=== PATIENT | female | born 1995 | race Hispanic/Latino ===

== ENCOUNTER 2019-07-03 07:50 | Emergency (ER) | payer MEDICAID ==
[2019-07-03 08:55] LABS: Bacteria,Urine 1+ /HPF (Negative); Bilirubin,Urine NEG (Negative); Blood,Urine NEG (Negative); Color,Urine Yellow (Yellow); Mucus,Urine FEW /HPF; Protein,Urine <15 mg/dL mg/dL (Negative); Urobilinogen,Urine < 2.0 mg/dL (<2.0)
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
--- NOTE | 2019-07-03 10:57 | Ultrasound Report ---
Obstetrical ultrasound. 07/03/2019. HISTORY: Left lower quadrant pain. History of ectopic . FINDINGS: Imaging was performed by transabdominally and endovaginally. The uterus measures 9 x 4.7 x 5.1 cm. The endometrial stripe is thickened measuring 14 mm. Negative for intrauterine . Right ovary measures 3.8 x 2 x 2 cm and contains small physiologic cysts. The left ovary measures 3.2 x 1.7 x 2.9 cm and contains small physiologic cysts. Both ovaries demonstrate flow. Negative for adn exal mass or fluid. IMPRESSION: 1. Thickened endometrial stripe. Negative for intrauterine . 2. Negative for adnexal abnormality. Signer Name: Wilmer Cherry MD Signed: 07/03/2019 10:53 AM Workstation Name: [id number]
[2019-07-03 11:35] VITALS: BP 139/61
== END 2019-07-03 11:35 | disposition home or self-care (01) ==
LOC: ED 07:50
DX: O26.891 Other specified pregnancy related conditions, first trimester (principal); R10.32 Left lower quadrant pain; Z3A.00 Weeks of gestation of pregnancy not specified
CPT/HCPCS: 36415; 76801; 76817; 81001; 84702

== ENCOUNTER 2019-07-09 10:38 | Outpatient (CLI) | payer MEDICAID ==
[2019-07-09 10:53] LABS: Basophils % (Auto) 0.2 % (0.0-1.8); Eosinophils # (Auto) 0.2 K/mm3 (0.0-0.4); Eosinophils % (Auto) 1.6 % (0.0-4.3); Hematocrit 40.3 % (30.3-42.9); Hemoglobin 13.2 gm/dl (10.1-14.3); Lymphocytes # (Auto) 2.8 K/mm3 (1.2-5.4); Lymphocytes % (Auto) 29.4 % (13.4-35.0); Mean Corpuscular HGB Conc 33 % (30-34); Mean Corpuscular Volume 95 fl (79-97); Monocytes # (Auto) 0.5 K/mm3 (0.0-0.8); Monocytes % (Auto) 4.8 % (0.0-7.3); Platelet Count 259 K/mm3 (140-440); Red Blood Count 4.26 M/mm3 (3.65-5.03); Red Cell Distribution Width 13.3 % (13.2-15.2)
[2019-07-09 11:09] LABS: Alanine Aminotransferase 21 units/L (7-56); Albumin 4.2 g/dL (3.9-5); BUN/Creatinine Ratio 13; Blood Urea Nitrogen 8 mg/dL (7-17); Calcium 8.4 mg/dL (8.4-10.2); Hemolysis Index 15
== END 2019-07-09 10:39 | disposition home or self-care (01) ==
LOC: LAB 10:38
PROVIDERS: ATTEND Obstetrics & Gynecology
DX: O00.90 Unspecified ectopic pregnancy without intrauterine pregnancy (principal)
CPT/HCPCS: 36415; 80053; 84702; 85025

== ENCOUNTER 2019-07-09 10:58 | Emergency (ER) | payer MEDICAID ==
--- NOTE | 2019-07-09 11:12 | Emergency Department Report ---
Blank Doc - Documentation Documentation: 24-year-old female that presents with methotrexate admin with labs. Labs has been drawn this morning. Was sent by Dr. Duarte. This initial assessment/diagnostic orders/clinical plan/treatment(s) is/are subject to change based on patient's health status, clinical progression and re- assessment by fellow clinical providers in the ED. Further treatment and workup at subsequent clinical providers discretion. Patient/guardians urged not to elope from the ED as their condition may be serious if not clinically assessed and managed. Initial orders include: 1- Patient sent to [facility] for further evaluation and treatment
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
[2019-07-09] MEDS ORDERED: KETOROLAC 60 MG/2 ML INJ IM ONE (14:57)
[2019-07-09] MEDS ORDERED: KETOROLAC 60 MG/2 ML INJ ONE (14:58)
[2019-07-09 15:21] VITALS: BP 140/84
== END 2019-07-09 14:48 | disposition home or self-care (01) ==
LOC: ED 10:58
DX: O00.90 Unspecified ectopic pregnancy without intrauterine pregnancy (principal); Z90.89 Acquired absence of other organs; Z88.1 Allergy status to other antibiotic agents
CPT/HCPCS: 96372; 99282; J1885; J9260

== ENCOUNTER 2019-07-12 00:46 | Inpatient (IN) | payer MEDICAID ==
[2019-07-12] MEDS ORDERED: ONDANSETRON 4 MG/2 ML INJ IV ONE (01:52)
[2019-07-12] MEDS ORDERED: MORPHINE 4 MG/1 ML INJ IV ONE ×2 (01:52→03:22)
[2019-07-12] MEDS ORDERED: SODIUM CHLORIDE 0.9% 1000 ML 1,000 ML IV ONE (01:52)
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
[2019-07-12 02:36] LABS: INR 0.95 (0.87-1.13)
[2019-07-12 02:49] LABS: Alanine Aminotransferase 44 units/L (7-56); Albumin 3.9 g/dL (3.9-5); BUN/Creatinine Ratio 13; Blood Urea Nitrogen 9 mg/dL (7-17); Calcium 8.6 mg/dL (8.4-10.2); Hemolysis Index 16
--- NOTE | 2019-07-12 03:14 | Ultrasound Report ---
ULTRASOUND OBSTETRIC INDICATION / CLINICAL INFORMATION: llq pain ectopic . Patient was treated with methotrexate 3 days ago for presumed ectopic . TECHNIQUE: Transabdominal. Transvaginal color Doppler ultrasound performed COMPARISON: Prior pelvic ultrasound 07/03/2019 FINDINGS: Within the uterus, the endometrium is markedly thickened measuring 2.2 cm. This represents increased thickening since the prior ultrasound. There is small amount of fluid within the endometrial cavity a s well as, but no defined gestational sac. The right ovary is well-visualized and appears unremarkable. Adjacent to the left ovary, there is a complex round mass measuring approximate 2.5 x 2.0 x 1.9 cm. T here is some mild surrounding increased vascularity. Within the mass, the central portion is cystic. No defined gestational sac or pole is identified. Both ovaries demonstrate ovarian flow. FREE FLUID: Mild to moderate in amount ADDITIONAL FINDINGS: None. IMPRESSION: 1. 2.5 cm round left adnexal mass with slightly increased surrounding vascularity. This is a new find ing compared to the prior pelvic ultrasound of 07/03/2019. The appearance is certainly worrisome for l eft adnexal ectopic . 2. Abnormal endometrial thickening. This has increased in amount since prior ultrasound of 07/03/2019 CRITICAL RESULT: Time of Discovery: 0159 hours CAR BARN LABORER Time of Communication: 0205 hours CAR BARN LABORER Licensed Practitioner Receiving Report: Dr. Joshua Read Back Performed: Yes. Signer Name: Wanda De Jesus MD Signed: 07/12/2019 3:10 AM Workstation Name: [id number]
--- NOTE | 2019-07-12 03:14 | Ultrasound Report ---
ULTRASOUND OBSTETRIC INDICATION / CLINICAL INFORMATION: llq pain ectopic . Patient was treated with methotrexate 3 days ago for presumed ectopic . TECHNIQUE: Transabdominal. Transvaginal color Doppler ultrasound performed COMPARISON: Prior pelvic ultrasound 07/03/2019 FINDINGS: Within the uterus, the endometrium is markedly thickened measuring 2.2 cm. This represents increased thickening since the prior ultrasound. There is small amount of fluid within the endometrial cavity a s well as, but no defined gestational sac. The right ovary is well-visualized and appears unremarkable. Adjacent to the left ovary, there is a complex round mass measuring approximate 2.5 x 2.0 x 1.9 cm. T here is some mild surrounding increased vascularity. Within the mass, the central portion is cystic. No defined gestational sac or pole is identified. Both ovaries demonstrate ovarian flow. FREE FLUID: Mild to moderate in amount ADDITIONAL FINDINGS: None. IMPRESSION: 1. 2.5 cm round left adnexal mass with slightly increased surrounding vascularity. This is a new find ing compared to the prior pelvic ultrasound of 07/03/2019. The appearance is certainly worrisome for l eft adnexal ectopic . 2. Abnormal endometrial thickening. This has increased in amount since prior ultrasound of 07/03/2019 CRITICAL RESULT: Time of Discovery: 0159 hours WILDLIFE PROTECTOR Time of Communication: 0205 hours WILDLIFE PROTECTOR Licensed Practitioner Receiving Report: Dr. Joshua Read Back Performed: Yes. Signer Name: Wanda De Jesus MD Signed: 07/12/2019 3:10 AM Workstation Name: [id number]
[2019-07-12 04:04] LABS: Hematocrit 39.4 % (30.3-42.9); Hemoglobin 13.4 gm/dl (10.1-14.3); Mean Corpuscular HGB Conc 34 % (30-34); Mean Corpuscular Volume 92 fl (79-97); Platelet Count 229 K/mm3 (140-440); Red Blood Count 4.31 M/mm3 (3.65-5.03); Red Cell Distribution Width 12.8 % (13.2-15.2)
[2019-07-12] MEDS ORDERED: MORPHINE 2 MG/1 ML INJ IV PRN ×2 (07:03→10:11)
[2019-07-12] MEDS: D5W/LACTATED RINGERS 1,000 ML IV SCH ×2 (07:11→15:55)
[2019-07-12] MEDS ORDERED: ONDANSETRON 4 MG/2 ML INJ IV PRN (09:12)
--- NOTE | 2019-07-12 10:11 | Short Stay Summary ---
Short Stay Documentation Date of service: 07/12/19 Narrative H&P: 24y/o @ 6 weeks ega with findings of an ectopic . The patient was treated for an ectopic in 2018 with a salpingectomy. She presents with an ectopic in the contralateral tube. The patient received IM methotrexate Jul 09. She presents to the ED with pelvic pain however denies vaginal bleeding. Pelvic ultrasound demonstrates a 2.5cm left adnexal mass consistent with an ectopic . It appears to be unruptured. The patient has had a decline in her HCG and her H/H along with vitals remain stable. - History Principal diagnosis: Ectopic Past Medical History: No medical history Past Surgical History: Other (laparoscopy/salpingectomy) Social history: - Allergies and Medications Current Medications: Allergies vancomycin Allergy (Verified 02/21/18 12:05) Hives Home Medications Medication Instructions Recorded Confirmed Last Taken Type Ibuprofen [Motrin] 800 mg PO Q8HR PRN #60 tablet 02/21/18 Unknown Rx oxyCODONE /ACETAMINOPHEN [Percocet 1 tab PO Q6HR PRN #30 tablet 02/21/18 Unknown Rx 5/325] Active Medications Dextrose/Lactated Ringer's (D5lr) 1,000 mls @ 125 mls/hr IV DIRECT HEMANTH Last Admin: 07/12/19 07:11 Dose: 125 mls/hr Documented by: Morphine Sulfate (Morphine) 2 mg IV Q1H PRN PRN Reason: Pain, Moderate (4-6) Last Admin: 07/12/19 09:03 Dose: 2 mg Documented by: Ondansetron HCl (Zofran) 4 mg IV Q4H PRN PRN Reason: Nausea And Vomiting Last Admin: 07/12/19 09:18 Dose: 4 mg Documented by: - Physical exam General appearance: mild distress Integumentary: no rash HEENT: Atraumatic Lungs: Clear to auscultation Breasts: deferred Heart: Regular rate Gastrointestinal: tenderness, obese Female Genitourinary: deferred - Hospital course Hospital course: Patient admitted for pain control and observation for ectopic s/p MTX treatment. The patient was experiencing pelvic pain with bleeding or rupture of ectopic. Patient remained stable. Reliable patient and will arrange followup in office. - Disposition Condition at discharge: Good Disposition: DC-01 TO HOME OR SELFCARE Short Stay Discharge Plan Activity: other (pelvic rest) Diet: regular Additional Instructions: patient will need to followup with Dr Andre on 07/16/2019 Prescriptions: Oxycodone HCl/Acetaminophen [Percocet 10/325 mg] 1 each PO Q8H PRN #30 tablet PRN Reason: Pain Ondansetron (Nf) [Zofran TAB] 8 mg PO Q8HR PRN #20 tablet PRN Reason: Nausea
[2019-07-12] MEDS: MORPHINE 4 MG/1 ML INJ IV PRN ×3 (12:12→20:33)
[2019-07-13] MEDS: D5W/LACTATED RINGERS 1,000 ML IV SCH (04:26)
[2019-07-13] MEDS: MORPHINE 4 MG/1 ML INJ IV PRN ×2 (04:28→08:18)
[2019-07-13 08:26] LABS: Hematocrit 33.7 % (30.3-42.9); Hemoglobin 11.4 gm/dl (10.1-14.3)
--- NOTE | 2019-07-13 08:37 | Progress Note ---
Assessment and Plan - Patient Problems (1) Ectopic Current Visit: Yes Status: Acute Plan to address problem: awaiting HCG levels will consider discharge today if remains stable Subjective - Subjective Date of service: 07/13/19 Principal diagnosis: Ectopic Interval history: Patient reports feeling better. Having intermittent vaginal bleeding. Slight decrease in H/H with hydration. Tolerating diet better. Patient reports: appetite normal, voiding normally, pain well controlled Objective - Vital Signs Latest vital signs: Vital Signs Temp Pulse Resp BP BP Pulse Ox 07/13/19 04:00 98.6 F 60 18 113/58 07/12/19 23:30 98.6 F 69 18 102/72 07/12/19 15:53 98.3 F 51 L 18 113/67 100 07/12/19 12:07 97.8 F 62 18 129/81 99 Intake and Output 07/12/19 07/13/19 07/13/19 22:59 06:59 14:59 Intake Total 1000 1000 Balance 1000 1000 Intake: IV 1000 1000 D5lr 1,000 ml @ 125 mls/ 1000 1000 hr IV DIRECT [facility] Rx#: [id number] Other: Voiding Method Toilet # Voids Void 1 1
[2019-07-13 12:50] VITALS: BP 106/61
== END 2019-07-13 12:30 | disposition home or self-care (01) | DRG 777 ==
LOC: ED 00:46 → OB 03:16
PROVIDERS: ADMIT Obstetrics & Gynecology; ATTEND Obstetrics & Gynecology
DX: O00.102 Left tubal pregnancy without intrauterine pregnancy (principal); F17.200 Nicotine dependence, unspecified, uncomplicated; O08.89 Other complications following an ectopic and molar pregnancy; Z88.1 Allergy status to other antibiotic agents; Z90.89 Acquired absence of other organs; Z90.79 Acquired absence of other genital organ(s)
CPT/HCPCS: 36415; 76801; 76817; 80053; 84702; 85014; 85018; 85025; 85027; 85610; 85730; 86850; 86900; 86901; 96372; 96374; 96375; G0378; J1885; J2270; J2405; J7030; J7121; J9260

== ENCOUNTER 2020-09-26 13:13 | Inpatient (IN) | payer MEDICAID ==
[2020-09-26] MEDS ORDERED: SODIUM CHLORIDE 0.9% 1000 ML 1,000 ML IV ONE (13:24)
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
[2020-09-26] MEDS ORDERED: LORazepam 2 MG/ML VIAL IV ONE ×2 (13:38→14:05)
[2020-09-26 15:43] LABS: Basophils # (Auto) 0.1 K/mm3 (0.0-0.1); Basophils % (Auto) 0.5 % (0.0-1.8); Eosinophils % (Auto) 0.3 % (0.0-4.3); Hematocrit 41.1 % (30.3-42.9); Hemoglobin 13.9 gm/dl (10.1-14.3); Lymphocytes # (Auto) 2.4 K/mm3 (1.2-5.4); Lymphocytes % (Auto) 16.7 % (13.4-35.0); Mean Corpuscular HGB Conc 34 % (30-34); Mean Corpuscular Volume 93 fl (79-97); Monocytes # (Auto) 0.8 K/mm3 (0.0-0.8); Monocytes % (Auto) 5.6 % (0.0-7.3); Platelet Count 369 K/mm3 (140-440); Red Cell Distribution Width 12.7 % (13.2-15.2)
[2020-09-26 15:50] LABS: Alanine Aminotransferase 13 units/L (7-56); Albumin 4.5 g/dL (3.9-5); BUN/Creatinine Ratio 16; Blood Urea Nitrogen 14 mg/dL (7-17); Calcium 9.1 mg/dL (8.4-10.2); Hemolysis Index 15
--- NOTE | 2020-09-26 16:27 | XRay Report ---
CHEST 1 VIEW 09/26/2020 3:18 PM INDICATION / CLINICAL INFORMATION: Shortness of breath. COMPARISON: None available. FINDINGS: SUPPORT DEVICES: None. HEART / MEDIASTINUM: No significant abnormality. LUNGS / PLEURA: No significant pulmonary or pleural abnormality. No pneumothorax. ADDITIONAL FINDINGS: No significant additional findings. IMPRESSION: 1. No acute findings. Signer Name: John Edwards MD Signed: 09/26/2020 4:23 PM Workstation Name: [id number]
[2020-09-26] MEDS ORDERED: ETOMIDATE 20 MG/10 ML INJ IV ONE (17:03)
[2020-09-26] MEDS ORDERED: ROCURONIUM 50 MG/5 ML INJ IV ONE (17:04)
[2020-09-26] MEDS ORDERED: LIP THERAPY VASELINE TP PRN (17:15)
[2020-09-26] MEDS ORDERED: fentaNYL 100 MCG/2 ML INJ IV PRN (17:15)
[2020-09-26] MEDS ORDERED: LORazepam 2 MG/ML VIAL IV PRN (17:15)
[2020-09-26] MEDS ORDERED: MINERAL OIL/PETROLATUM, WHITE OPHTH OINT 3.5 GM OU PRN (17:15)
--- NOTE | 2020-09-26 17:15 | History and Physical Report ---
History of Present Illness Chief complaint: Confused History of present illness: 25 YO Female with Nicotine Dependence, Methamphetamine Dependence presents to ED for evaluation. Patient is confused and lethargic and unable to provide history the time of my evaluation. Patient history taken from EMS staff, ED staff, as well as patient family. Patient family reports that patient ingested 7 g methamphetamines in an effort to hide it from the police. Patient transported to [facility] via private vehicle for further care and evaluation of the aforementioned symptoms. Patient seen and evaluated in the emergency department. All labs and imaging studies reviewed. At the time my evaluation the patient is lethargic and is unable to protect her airway and has a pulse oximetry of 86% on room air. The patient was subsequently intubated and placed on ventilatory support. No further history is obtainable. No prior admission for review. No medication listed at time of admission for reconciliation. This is a 25-year-old female who presents to the emergency department with complaint of feeling hot and having palpitations after swallowing 7 g of methamphetamines. The patient ingested the methamphetamines about 3 hours prior to presentation as she was trying to avoid being caught with the drugs by the aretha giraldo. The patient does admit that she has previously used methamphetamines. She is a tobacco smoker. She denies any current alcohol use. She denies any other past medical history. The patient was driven in by a friend or family member. She has not taken anything else for symptoms prior to presentation today. Poison control notified. Past History Past Medical History: other (See HPI) Past Surgical History: tonsillectomy, Other (Back surgery) Social history: , smoking Family history: no significant family history (Reviewed) Medications and Allergies Allergies Allergy/AdvReac Type Severity Reaction Status Date / Time vancomycin Allergy Hives Verified 02/21/18 12:05 Home Medications Medication Instructions Recorded Confirmed Last Taken Type Ibuprofen [Motrin] 800 mg PO Q8HR PRN #60 tablet 02/21/18 07/12/19 Unknown Rx oxyCODONE /ACETAMINOPHEN [Percocet 1 tab PO Q6HR PRN #30 tablet 02/21/18 07/12/19 Unknown Rx 5/325] Ondansetron (Nf) [Zofran TAB] 8 mg PO Q8HR PRN #20 tablet 07/13/19 Unknown Rx Oxycodone HCl/Acetaminophen 1 each PO Q8H PRN #30 tablet 07/13/19 Unknown Rx [Percocet 10/325 mg] Review of Systems ROS unobtainable: due to mental status Exam - Constitutional Vitals: Temp Pulse Resp BP Pulse Ox 97.0 F L 122 H 26 H 104/53 98 09/26/20 13:30 09/26/20 16:53 09/26/20 16:53 09/26/20 16:53 09/26/20 16:53 General appearance: Present: mild distress - EENT Eyes: Present: PERRL, mydriasis ENT: clear oral mucosa, hearing decreased, other (Oral mucosa dry) - Neck Neck: Present: supple, normal ROM - Respiratory Respiratory effort: normal Respiratory: bilateral: diminished, rhonchi - Cardiovascular Rhythm: other (Tachycardia) Heart Sounds: Present: S1 & S2. Absent: rub, click - Extremities Extremities: pulses symmetrical, No edema Peripheral Pulses: within normal limits - Abdominal General gastrointestinal: Present: soft, non-tender, non-distended, normal bowel sounds Female genitourinary: Present: normal - Integumentary Integumentary: Present: clear, warm, dry - Musculoskeletal Musculoskeletal: gait normal, strength equal bilaterally - Psychiatric Psychiatric: appropriate mood/affect, intact judgment & insight - Neurologic Neurologic: CNII-XII intact, moves all extremities Results - Labs CBC & Chem 7: 09/26/20 14:58 09/26/20 14:58 Labs: Abnormal lab results 09/26/20 09/26/20 09/26/20 Range/Units 14:58 14:58 14:58 WBC 14.4 H (4.5-11.0) K/mm3 RDW 12.7 L (13.2-15.2) % Seg Neutrophils % 76.9 H (40.0-70.0) % Seg Neutrophils # 11.1 H (1.8-7.7) K/mm3 Chloride 108.9 H (98-107) mmol/L Carbon Dioxide 19 L (22-30) mmol/L Salicylates < 0.3 L (2.8-20.0) mg/dL Acetaminophen (10.0-30.0) ug/mL 09/26/20 Range/Units 14:58 WBC (4.5-11.0) K/mm3 RDW (13.2-15.2) % Seg Neutrophils % (40.0-70.0) % Seg Neutrophils # (1.8-7.7) K/mm3 Chloride (98-107) mmol/L Carbon Dioxide (22-30) mmol/L Salicylates (2.8-20.0) mg/dL Acetaminophen 5.0 L (10.0-30.0) ug/mL Assessment and Plan - Patient Problems (1) Acute hypoxemic respiratory failure Current Visit: Yes Status: Acute Plan to address problem: Patient intubated and placed on ventilatory support, daily ABG, spontaneous breathing trial daily, sedation holiday, critical care team consulted, supportive care. The high probability of a clinically significant, sudden or life threatening deterioration of the [neuro, pulmonary] system(s) required my full and direct attention, intervention and personal management. The aggregate critical care time was [65] minutes. This time is in addition to time spent performing reported procedures but includes the following: [x] Data Review and interpretation [x] Patient assessment and monitoring of vital signs [x] Documentation [x] Medication orders and management (2) Systemic inflammatory response syndrome Current Visit: Yes Status: Acute Plan to address problem: CBC, repeat CBC in a.m., IV fluid resuscitation therapy. (3) Nicotine dependence Current Visit: Yes Status: Acute Qualifiers: Nicotine product type: cigarettes Substance use status: in withdrawal Qualified Code(s): F17.213 - Nicotine dependence, cigarettes, with withdrawal (4) Methamphetamine intoxication Current Visit: Yes Status: Acute Plan to address problem: Poison control notified, benzodiazepine therapy, supportive care. Neurochecks. (5) DVT prophylaxis Current Visit: Yes Status: Acute Plan to address problem: SCD to bilateral lower extremities while in bed, prophylactic anticoagulation
--- NOTE | 2020-09-26 17:40 | XRay Report ---
CHEST 1 VIEW 09/26/2020 5:11 PM INDICATION / CLINICAL INFORMATION: post intubation. COMPARISON: 09/26/2020 FINDINGS: SUPPORT DEVICES: Interval placement of ET tube with its tip stemmed in the right main bronchus. Retra ction approximately 4.3 cm is recommended. HEART / MEDIASTINUM: Stable. LUNGS / PLEURA: No significant pulmonary or pleural abnormality. No pneumothorax. ADDITIONAL FINDINGS: No significant additional findings. IMPRESSION: 1. Interval placement of ET tube stemmed within the right main bronchus. Retraction approximately 4.3 cm is recommended. Signer Name: Angelito Sanchez MD Signed: 09/26/2020 5:36 PM Workstation Name: [id number]
[2020-09-26] MEDS ORDERED: fentaNYL DRIP Premix 2,000 MCG/100 ML BAG IV SCH (18:00)
[2020-09-26] MEDS ORDERED: MIDAZOLAM 5 MG/5 ML INJ MDV IV NR (18:00)
[2020-09-26] MEDS ORDERED: LORazepam 100 MG in SODIUM CHLORIDE 0.9% 50 ML, EMPTY BAG 0 ML IV SCH (18:00)
[2020-09-26] MEDS: HEPARIN 5,000 UNIT/1 ML VIAL SUB-Q SCH (23:00)
--- NOTE | 2020-09-27 03:38 | XRay Report ---
CHEST 1 VIEW 09/27/2020 2:12 AM INDICATION / CLINICAL INFORMATION: follow up respiratory failure. COMPARISON: 09/26/2020 FINDINGS: SUPPORT DEVICES: Tip of endotracheal tube projects the level the ari. HEART / MEDIASTINUM: No significant abnormality. LUNGS / PLEURA: Right lung is clear. There is mild volume loss in the left. No pneumothorax. ADDITIONAL FINDINGS: No significant additional findings. IMPRESSION: 1. Tip of endotracheal tube is at the level the ari. There is mild volume loss on the left CRITICAL RESULT: Dr. Mallory called this report to patients nurseKay, at time 0233 central time. Report was conf irmed. Signer Name: Yuri Mallory MD Signed: 09/27/2020 3:34 AM Workstation Name: [id number]
--- NOTE | 2020-09-27 06:56 | XRay Report ---
CHEST 1 VIEW 09/27/2020 6:37 AM INDICATION / CLINICAL INFORMATION: ET Tube Placement. COMPARISON: 09/27/2020, O2 50 hours FINDINGS: SUPPORT DEVICES: Endotracheal tube tip is positioned approximately 1.5 cm above the ari HEART / MEDIASTINUM: Unchanged LUNGS / PLEURA: The lungs appear unchanged No pneumothorax. ADDITIONAL FINDINGS: No significant additional findings. IMPRESSION: 1. The endotracheal tube has been retracted slightly. The tip now projects approximately 1.5 cm above the ari. Lungs appear unchanged. Signer Name: Yuri Mallory MD Signed: 09/27/2020 6:52 AM Workstation Name: [id number]
[2020-09-27] MEDS: HEPARIN 5,000 UNIT/1 ML VIAL SUB-Q SCH ×2 (09:13→21:45)
[2020-09-27] MEDS: FAMOTIDINE 20 MG/2 ML INJ IV SCH ×2 (09:13→21:45)
[2020-09-27] MEDS ORDERED: LORazepam 2 MG/ML VIAL IV PRN (09:50)
--- NOTE | 2020-09-27 09:55 | Consultation ---
History of Present Illness Consult date: 09/27/20 Requesting physician: BRADEN LEAVITT Reason for consult: other (meth overdose) History of present illness: Patient is intubated and sedated. All history comes from chart. 25 y/o female who presented to the ED yesterday with complaints of palpatations and feeling warm. Swallowed 7grams of methamphetamines. Per chart, ED spoke with poison control who stated to be liberal with benzo therapy. Checked out to next ED physician who was called to bedside to evaluate patient. Per their assessment, not able to protect airway so intubated. No ABG was performed pre intubation. Once intubated, patient was then started on ativan drip, not exactly sure why as she was intubated for airway protection which would suggest her mental status was compromised. This am she is on minimal vent settings but still sedated. Past History Past Medical History: other (unable to obtain) Past Surgical History: tonsillectomy, Other (Back surgery) Social history: , smoking Family history: no significant family history (Reviewed) Medications and Allergies Allergies Allergy/AdvReac Type Severity Reaction Status Date / Time vancomycin Allergy Hives Verified 02/21/18 12:05 Home Medications Medication Instructions Recorded Confirmed Last Taken Type No Known Home Medications [No 09/26/20 09/26/20 Unknown History Reported Home Medications] Active Meds: Active Medications Famotidine (Famotidine 20 Mg/2 Ml Inj) 20 mg IV BID [facility] Last Admin: 09/27/20 09:13 Dose: 20 mg Documented by: Fentanyl (Fentanyl 100 Mcg/2 Ml Inj) 50 mcg IV Q10MIN PRN PRN Reason: ANALGESIA Heparin Sodium (Porcine) (Heparin 5,000 Unit/1 Ml Vial) 5,000 unit SUB-Q Q12HR [facility] Last Admin: 09/27/20 09:13 Dose: 5,000 unit Documented by: Hydrophilic Ointment (Lip Therapy Vaseline) 1 applic TP Q2HR PRN PRN Reason: Dry Lips Fentanyl Citrate (Fentanyl Drip Premix) 2,000 mcg in 100 mls @ 3.96 mls/hr IV T ITR [facility]; Protocol Sodium Chloride (Nacl 0.9% 1000 Ml) 1,000 mls @ 125 mls/hr IV DIRECT [facility] Lorazepam (Lorazepam 2 Mg/Ml Vial) 2 mg IV Q10MIN PRN PRN Reason: Agitation Lorazepam (Lorazepam 2 Mg/Ml Vial) 2 mg IV Q4H PRN PRN Reason: Agitation Multi-Ingred Cream/Lotion/Oil/Oint (Mineral Oil/Petrolatum, White Ophth Oint 3.5 Gm) 1 applic OU Q4HR PRN PRN Reason: Dry Eye(s) Sodium Chloride (Sodium Chloride 0.9% 10 Ml Flush Syringe) 10 ml IV BID [facility] Last Admin: 09/27/20 09:13 Dose: 10 ml Documented by: Sodium Chloride (Sodium Chloride 0.9% 10 Ml Flush Syringe) 10 ml IV PRN PRN PRN Reason: LINE FLUSH Review of Systems ROS unobtainable: due to endotracheal tube, due to mental status Physical Examination Vital signs: Vital Signs Temp Pulse Resp BP Pulse Ox 97.0 F L 163 H 40 H 149/103 86 09/26/20 13:30 09/26/20 13:30 09/26/20 13:30 09/26/20 13:30 09/26/20 13:30 General appearance: no acute distress Eyes: non-icteric ENT: other (orally intubated and sedated.) Neck: supple Effort: normal Ascultation: Bilateral: clear Results - Laboratory Findings CBC and BMP: 09/26/20 14:58 09/26/20 14:58 ABG ABG pH 7.427 (7.320-7.450) 09/27/20 08:58 POC ABG pCO2 32.9 mmHg (32.0-48.0) 09/27/20 08:58 POC ABG pO2 86.9 mmHg (83-108) 09/27/20 08:58 POC ABG HCO3 21.2 09/27/20 08:58 Abnormal lab findings: Abnormal Labs 09/26/20 09/26/20 09/26/20 14:58 14:58 14:58 WBC 14.4 H RDW 12.7 L Seg Neutrophils % 76.9 H Seg Neutrophils # 11.1 H ABG pH POC ABG pCO2 ABG Sodium ABG Chloride ABG Glucose Chloride 108.9 H Carbon Dioxide 19 L Arterial Blood Glucose Salicylates < 0.3 L Acetaminophen 09/26/20 09/26/20 09/27/20 14:58 18:00 08:58 WBC RDW Seg Neutrophils % Seg Neutrophils # ABG pH 7.224 L POC ABG pCO2 54.8 H ABG Sodium 155.4 H ABG Chloride 110.0 H ABG Glucose 99 H 110 H Chloride Carbon Dioxide Arterial Blood Glucose 99 H 110 H Salicylates Acetaminophen 5.0 L - Diagnostic Findings Chest x-ray: image reviewed (clear, no evidenc of acute disease) Assessment and Plan 25 y/o with drug overdose. Stop sedation, continuous Extubate PRN ativan Monitor in Step down once extubated.
[2020-09-27 12:36] LABS: Basophils % (Auto) 0.1 % (0.0-1.8); Hematocrit 38.5 % (30.3-42.9); Hemoglobin 12.9 gm/dl (10.1-14.3); Lymphocytes # (Auto) 1.1 K/mm3 (1.2-5.4); Lymphocytes % (Auto) 6.2 % (13.4-35.0); Mean Corpuscular HGB Conc 34 % (30-34); Mean Corpuscular Volume 93 fl (79-97); Monocytes # (Auto) 0.9 K/mm3 (0.0-0.8); Monocytes % (Auto) 5.2 % (0.0-7.3); Platelet Count 270 K/mm3 (140-440); Red Blood Count 4.14 M/mm3 (3.65-5.03); Red Cell Distribution Width 12.9 % (13.2-15.2)
[2020-09-27 12:39] LABS: Benzodiazepines Screen,Urine Negative; Cocaine Screen,Urine Negative; Methadone Screen,Urine Negative; Opiate Screen,Urine Negative
[2020-09-27 12:41] LABS: Bilirubin,Urine NEG (Negative); Blood,Urine MOD (Negative); Color,Urine Yellow (Yellow); Mucus,Urine 2+ /HPF; Urobilinogen,Urine < 2.0 mg/dL (<2.0)
[2020-09-27 12:54] LABS: Amphetamine Screen,Urine Positive; Cannabinoid Screen,Urine Positive
[2020-09-27 12:55] LABS: Alanine Aminotransferase 15 units/L (7-56); Albumin 3.8 g/dL (3.9-5); BUN/Creatinine Ratio 14; Blood Urea Nitrogen 10 mg/dL (7-17); Calcium 8.5 mg/dL (8.4-10.2); Hemolysis Index 6
--- NOTE | 2020-09-27 12:55 | Progress Note ---
Assessment and Plan Assessment and plan: -- Acute hypoxemic respiratory failure Current Visit: Yes Status: Acute Plan to address problem: Patient intubated and on ventilatory support, Wean as tolerated and extubate Supportive care, pulmonary critical following -- Methamphetamine intoxication Current Visit: Yes Status: Acute Plan to address problem: Poison control notified, benzodiazepine therapy, supportive care. Neurochecks. We will strongly advise to quit recreational drug use when patient is more stable --Systemic inflammatory response syndrome Current Visit: Yes Status: Acute Plan to address problem: CBC, repeat CBC in a.m., IV fluid resuscitation therapy. Follow cultures -- Nicotine dependence Current Visit: Yes Status: Acute . Smoking cessation counseling when patient is more stable Nicotine patch as needed --DVT prophylaxis Current Visit: Yes Status: Acute Plan to address problem: SCD to bilateral lower extremities while in bed, prophylactic anticoagulation Closely monitor the patient and adjust the management as needed Restraints for safety, and for agitation The high probability of a clinically significant, sudden or life threatening deterioration of the [neuro, metabolic and pulmonary] system(s) required my full and direct attention, intervention and personal management. The aggregate critical care time was [35] minutes. This time is in addition to time spent performing reported procedures but includes the following: [x] Data Review and interpretation [x] Patient assessment and monitoring of vital signs [x] Documentation [x] Medication orders and management Consults and recommendations noted and appreciated Plan of care reviewed with the patient's nurse History Interval history: I seen and examined the patient at the bedside this morning in ICU Patient's chart and medications reviewed Patient is admitted with drug overdose and altered level of consciousness and acute respiratory failure Requiring intubation and mechanical ventilation Patient remains intubated on vent, Sedated Vital signs noted Hospitalist Physical - Constitutional Vitals: Temp Pulse Resp BP Pulse Ox 98.4 F 118 H 35 H 126/93 96 09/27/20 03:23 09/27/20 09:09 09/27/20 08:00 09/27/20 05:44 09/27/20 12:13 General appearance: Present: mild distress, obese, other (Intubated on ventilatory support) - EENT Eyes: Present: PERRL, EOM intact ENT: other (ET tube and Dobbhoff in place) - Neck Neck: Present: supple, normal ROM - Respiratory Respiratory effort: normal Respiratory: bilateral: diminished, rhonchi, negative: rales, wheezing - Cardiovascular Rhythm: regular Heart Sounds: Present: S1 & S2 - Extremities Extremities: no ischemia, No edema - Abdominal General gastrointestinal: soft, non-tender, non-distended, normal bowel sounds - Integumentary Integumentary: Present: clear, warm - Psychiatric Psychiatric: other (Intubated on vent) - Neurologic Neurologic: other (Intubated on vent) Results - Labs CBC & Chem 7: 09/27/20 12:15 09/27/20 12:15 Labs: Laboratory Last Values WBC 17.8 K/mm3 (4.5-11.0) H 09/27/20 12:15 RBC 4.14 M/mm3 (3.65-5.03) 09/27/20 12:15 Hgb 12.9 gm/dl (10.1-14.3) 09/27/20 12:15 Hct 38.5 % (30.3-42.9) 09/27/20 12:15 MCV 93 fl (79-97) 09/27/20 12:15 MCH 31 pg (28-32) 09/27/20 12:15 MCHC 34 % (30-34) 09/27/20 12:15 RDW 12.9 % (13.2-15.2) L 09/27/20 12:15 Plt Count 270 K/mm3 (140-440) 09/27/20 12:15 Lymph % (Auto) 6.2 % (13.4-35.0) L 09/27/20 12:15 [place] % (Auto) 5.2 % (0.0-7.3) 09/27/20 12:15 Eos % (Auto) 0.0 % (0.0-4.3) 09/27/20 12:15 Baso % (Auto) 0.1 % (0.0-1.8) 09/27/20 12:15 Lymph # (Auto) 1.1 K/mm3 (1.2-5.4) L 09/27/20 12:15 [place] # (Auto) 0.9 K/mm3 (0.0-0.8) H 09/27/20 12:15 Eos # (Auto) 0.0 K/mm3 (0.0-0.4) 09/27/20 12:15 Baso # (Auto) 0.0 K/mm3 (0.0-0.1) 09/27/20 12:15 Seg Neutrophils % 88.5 % (40.0-70.0) H 09/27/20 12:15 Seg Neutrophils # 15.8 K/mm3 (1.8-7.7) H 09/27/20 12:15 ABG pH 7.427 (7.320-7.450) 09/27/20 08:58 POC ABG pCO2 32.9 mmHg (32.0-48.0) 09/27/20 08:58 POC ABG pO2 86.9 mmHg (83-108) 09/27/20 08:58 POC ABG HCO3 21.2 09/27/20 08:58 POC ABG Base Excess -2.3 09/27/20 08:58 ABG Hemoglobin 13.8 (12.0-17.5) 09/27/20 08:58 ABG Oxyhemoglobin 96.2 (94-98) 09/27/20 08:58 ABG Methemoglobin 0.3 (0.0-1.5) 09/27/20 08:58 ABG Sodium 142.4 mmol/L (136.0-145.0) 09/27/20 08:58 ABG Potassium 3.8 mmol/L (3.40-4.50) 09/27/20 08:58 ABG Chloride 106.0 mmol/L (98-107) 09/27/20 08:58 ABG Glucose 110 mg/dL (65-95) H 09/27/20 08:58 Carboxyhemoglobin 0.7 (0.5-1.5) 09/27/20 08:58 FiO2 45 09/27/20 08:58 Sodium 142 mmol/L (137-145) 09/26/20 14:58 Potassium 4.9 mmol/L (3.6-5.0) 09/26/20 14:58 Chloride 108.9 mmol/L (98-107) H 09/26/20 14:58 Carbon Dioxide 19 mmol/L (22-30) L 09/26/20 14:58 Anion Gap 19 mmol/L 09/26/20 14:58 BUN 14 mg/dL (7-17) 09/26/20 14:58 Creatinine 0.9 mg/dL (0.6-1.2) 09/26/20 14:58 Estimated GFR > 60 ml/min 09/26/20 14:58 BUN/Creatinine Ratio 16 % 09/26/20 14:58 Glucose 83 mg/dL (65-100) 09/26/20 14:58 Calcium 9.1 mg/dL (8.4-10.2) 09/26/20 14:58 Total Bilirubin 0.40 mg/dL (0.1-1.2) 09/26/20 14:58 AST 18 units/L (5-40) 09/26/20 14:58 ALT 13 units/L (7-56) 09/26/20 14:58 Alkaline Phosphatase 52 units/L (35-129) 09/26/20 14:58 Total Protein 6.7 g/dL (6.3-8.2) 09/26/20 14:58 Albumin 4.5 g/dL (3.9-5) 09/26/20 14:58 Albumin/Globulin Ratio 2.0 % 09/26/20 14:58 TSH 2.960 mlU/mL (0.270-4.200) 09/26/20 14:58 HCG, Qual Negative (Negative) 09/26/20 14:58 Arterial Blood Glucose 110 mg/dL (65-95) H 09/27/20 08:58 Arterial Blood Ionized Calcium 4.7 mg/dL (4.6-5.3) 09/27/20 08:58 Urine Color Yellow (Yellow) 09/27/20 08:15 Urine Turbidity Slightly-cloudy (Clear) 09/27/20 08:15 Urine pH 6.0 (5.0-7.0) 09/27/20 08:15 Ur Specific [place] 1.031 (1.003-1.030) H 09/27/20 08:15 Urine Protein 30 mg/dl mg/dL (Negative) 09/27/20 08:15 Urine Glucose (UA) Neg mg/dL (Negative) 09/27/20 08:15 Urine Ketones Tr mg/dL (Negative) 09/27/20 08:15 Urine Blood Mod (Negative) 09/27/20 08:15 Urine Nitrite Neg (Negative) 09/27/20 08:15 Urine Bilirubin Neg (Negative) 09/27/20 08:15 Urine Urobilinogen < 2.0 mg/dL (<2.0) 09/27/20 08:15 Ur Leukocyte Esterase Neg (Negative) 09/27/20 08:15 Urine WBC (Auto) 3.0 /HPF (0.0-6.0) 09/27/20 08:15 Urine RBC (Auto) 10.0 /HPF (0.0-6.0) 09/27/20 08:15 U Epithel Cells (Auto) 1.0 /HPF (0-13.0) 09/27/20 08:15 Urine Mucus 2+ /HPF 09/27/20 08:15 Salicylates < 0.3 mg/dL (2.8-20.0) L 09/26/20 14:58 Urine Opiates Screen Negative 09/27/20 08:15 Urine Methadone Screen Negative 09/27/20 08:15 Acetaminophen 5.0 ug/mL (10.0-30.0) L 09/26/20 14:58 Ur Barbiturates Screen Negative 09/27/20 08:15 Ur Phencyclidine Scrn Negative 09/27/20 08:15 Ur Amphetamines Screen Positive 09/27/20 08:15 U Benzodiazepines Scrn Negative 09/27/20 08:15 Urine Cocaine Screen Negative 09/27/20 08:15 U Marijuana (THC) Screen Positive 09/27/20 08:15 Drugs of Abuse Note Disclamer 09/27/20 08:15 Plasma/Serum Alcohol < 0.01 % (0-0.07) 09/26/20 14:58 Burt/IV: Voiding Method Indwelling Catheter IV Catheter Type [Left Hand] Peripheral IV Active Medications - Current Medications Current Medications: Generic Name Dose Route Start Last Admin Trade Name Freq PRN Reason Stop Dose Admin Famotidine 20 mg 09/27/20 10:00 09/27/20 09:13 Famotidine 20 Mg/2 Ml Inj IV 20 mg BID HEMANTH Administration Heparin Sodium (Porcine) 5,000 unit 09/26/20 22:00 09/27/20 09:13 Heparin 5,000 Unit/1 Ml Vial SUB-Q 5,000 unit Q12HR HEMANTH Administration Hydrophilic Ointment 1 applic 09/26/20 17:15 Lip Therapy Vaseline TP Q2HR PRN Dry Lips Sodium Chloride 1,000 mls @ 125 mls/hr 09/26/20 17:15 Nacl 0.9% 1000 Ml IV DIRECT HEMANTH Lorazepam 2 mg 09/27/20 09:50 Lorazepam 2 Mg/Ml Vial IV Q4H PRN Agitation Multi-Ingred Cream/Lotion/Oil/Oint 1 applic 09/26/20 17:15 Mineral Oil/Petrolatum, White Ophth Oint 3.5 Gm OU Q4HR PRN Dry Eye(s) Sodium Chloride 10 ml 09/26/20 22:00 09/27/20 09:13 Sodium Chloride 0.9% 10 Ml Flush Syringe IV 10 ml BID HEMANTH Administration Sodium Chloride 10 ml 09/26/20 17:15 Sodium Chloride 0.9% 10 Ml Flush Syringe IV PRN PRN LINE FLUSH Nutrition/Malnutrition Assess - Dietary Evaluation Nutrition/Malnutrition Findings: Nutrition Notes Start: 09/27/20 11:12 Freq: Status: Active Protocol: Document 09/27/20 11:12 AT (Rec: 09/27/20 11:34 AT [email or web address]) Co-Sign 09/27/20 11:12 LP Nutrition Notes Need for Assessment generated from: MD Order Initial or Follow up Assessment Current Diagnosis Respiratory Failure Other Pertinent Diagnosis SIRS, Tachycardia, Methamphetamine Overdose, AMS Current Diet NPO Labs/Tests Reviewed Pertinent Medications NS at 125 mL/hr Height 5 ft 4 in Weight 79.2 kg [place] Body Weight (kg) 54.54 BMI 29.9 Weight Status Obese Subjective/Other Information MD consult to evaluate nutritonal intake. Pt is currently on the vent. Per RN, pt is scheduled to be extubated soon. Per chart, pt had a Lamont Score of 17, but the RN noted no areas of concern on the pt. Swallowing difficulties confirmed by RN, but no impediments of intake PO. Will follow up with pt on difficulties. Burn Absent Trauma Absent Difficulty In Swallowing Current % PO Negligible Minimum of two criteria No Reduced Button And Buckle Maker Strength N/A (non-severe) #1 Nutrition Diagnosis Inadequate oral intake Etiology Methamphetamine abuse/overdose As Evidenced by Signs and Symptoms pt on vent and NPO Is patient on ventilator? Yes Is Patient Ambulatory and/or Out of Bed Yes REE-([place]-St. Jeor-ambulatory/OOB) [ 1972.100 [id number]] Kcal/Kg value to use for calculation 20 Approximate Energy Requirements Using 1584 kcal/Kg Calculation Used for Recommendations Kcal/kg Additional Notes PRO needs: >108g (>2g/kg IBW) Fluid needs: 1 mL/kcal Nutrition Intervention Change Diet Order: Regular diet, possibly mechanical soft Goal #1 Diet advancement when medically feasible Anticipated Discharge Needs: Unable to determine at this time. Follow-Up By: 09/28/20 Additional Comments F/U for vent status, diet advancement
[2020-09-28 07:48] LABS: Basophils % (Auto) 0.2 % (0.0-1.8); Eosinophils # (Auto) 0.1 K/mm3 (0.0-0.4); Eosinophils % (Auto) 0.4 % (0.0-4.3); Hematocrit 39.8 % (30.3-42.9); Hemoglobin 13.4 gm/dl (10.1-14.3); Lymphocytes # (Auto) 1.5 K/mm3 (1.2-5.4); Lymphocytes % (Auto) 10.6 % (13.4-35.0); Mean Corpuscular HGB Conc 34 % (30-34); Mean Corpuscular Volume 95 fl (79-97); Monocytes # (Auto) 0.9 K/mm3 (0.0-0.8); Monocytes % (Auto) 6.2 % (0.0-7.3); Platelet Count 267 K/mm3 (140-440); Red Blood Count 4.17 M/mm3 (3.65-5.03); Red Cell Distribution Width 12.8 % (13.2-15.2)
[2020-09-28 08:13] LABS: Alanine Aminotransferase 18 units/L (7-56); Albumin 3.7 g/dL (3.9-5); Blood Urea Nitrogen 15 mg/dL (7-17); Calcium 8.6 mg/dL (8.4-10.2); Hemolysis Index 4
[2020-09-28 08:33] LABS: BUN/Creatinine Ratio 21
[2020-09-28] MEDS: HEPARIN 5,000 UNIT/1 ML VIAL SUB-Q SCH ×2 (09:13→21:57)
--- NOTE | 2020-09-28 13:56 | Progress Note ---
Assessment and Plan 25 y/o with drug overdose. Stopped PRN ativan Wean supplemental O2 for sats >88% Given BMI, neck size, could benefit from outpatient screening for RAMU and likely PSG Will see PRN. Subjective Date of service: 09/28/20 Interval history: Successful extubation. Transitioned to step down. Still drowsy and has not required anymore ativan. Objective Vital Signs - 12hr 09/28/20 09/28/20 09/28/20 02:00 02:11 02:21 Temperature Pulse Rate 105 H 103 H 101 H Respiratory 31 H 27 H 30 H Rate Blood Pressure 124/84 124/84 106/77 O2 Sat by Pulse 95 96 95 Oximetry 09/28/20 09/28/20 09/28/20 02:30 02:41 02:51 Temperature Pulse Rate 99 H 104 H 105 H Respiratory 27 H 30 H 32 H Rate Blood Pressure 116/83 116/83 122/80 O2 Sat by Pulse 97 97 98 Oximetry 09/28/20 09/28/20 09/28/20 03:00 03:11 03:21 Temperature Pulse Rate 104 H 107 H 106 H Respiratory 21 27 H 34 H Rate Blood Pressure 119/83 119/83 128/87 O2 Sat by Pulse 97 98 98 Oximetry 09/28/20 09/28/20 09/28/20 03:30 03:38 03:41 Temperature 98.7 F Pulse Rate 107 H 105 H Respiratory 26 H 27 H Rate Blood Pressure 130/81 130/81 O2 Sat by Pulse 97 97 Oximetry 09/28/20 09/28/20 09/28/20 03:51 04:00 04:11 Temperature Pulse Rate 108 H 108 H 107 H Respiratory 23 22 23 Rate Blood Pressure 128/86 126/82 126/82 O2 Sat by Pulse 96 93 96 Oximetry 09/28/20 09/28/20 09/28/20 04:21 04:30 04:41 Temperature Pulse Rate 109 H 108 H 111 H Respiratory 31 H 22 33 H Rate Blood Pressure 124/81 127/87 127/87 O2 Sat by Pulse 95 96 95 Oximetry 09/28/20 09/28/20 09/28/20 04:51 05:00 05:11 Temperature Pulse Rate 111 H 109 H 110 H Respiratory 33 H 25 H 33 H Rate Blood Pressure 128/81 120/79 120/79 O2 Sat by Pulse 94 95 94 Oximetry 09/28/20 09/28/20 09/28/20 05:21 05:30 05:41 Temperature Pulse Rate 110 H 106 H 110 H Respiratory 36 H 29 H 32 H Rate Blood Pressure 118/80 124/79 124/79 O2 Sat by Pulse 94 94 93 Oximetry 09/28/20 09/28/20 09/28/20 05:51 06:00 06:11 Temperature Pulse Rate 113 H 106 H 104 H Respiratory 27 H 28 H 27 H Rate Blood Pressure 127/83 120/83 120/83 O2 Sat by Pulse 96 95 94 Oximetry 09/28/20 09/28/20 09/28/20 06:21 06:30 06:41 Temperature Pulse Rate 104 H 106 H 103 H Respiratory 23 33 H 24 Rate Blood Pressure 120/83 127/84 127/84 O2 Sat by Pulse 97 98 98 Oximetry 09/28/20 09/28/20 09/28/20 06:51 07:00 07:11 Temperature Pulse Rate 103 H 107 H 104 H Respiratory 34 H 29 H 28 H Rate Blood Pressure 127/84 121/79 121/79 O2 Sat by Pulse 99 100 99 Oximetry 09/28/20 09/28/20 09/28/20 07:21 07:30 07:41 Temperature Pulse Rate 109 H 104 H 105 H Respiratory 30 H 30 H 28 H Rate Blood Pressure 121/79 125/83 125/83 O2 Sat by Pulse 98 99 98 Oximetry 09/28/20 09/28/20 09/28/20 07:51 08:00 08:11 Temperature 98.8 F Pulse Rate 104 H 106 H 109 H Respiratory 44 H 29 H 32 H Rate Blood Pressure 125/83 130/77 130/77 O2 Sat by Pulse 98 93 96 Oximetry 09/28/20 09/28/20 09/28/20 08:21 08:30 08:41 Temperature Pulse Rate 109 H 109 H 114 H Respiratory 35 H 25 H 32 H Rate Blood Pressure 130/77 119/86 119/86 O2 Sat by Pulse 96 95 96 Oximetry 09/28/20 09/28/20 09/28/20 08:51 09:00 09:11 Temperature Pulse Rate 104 H 109 H 109 H Respiratory 29 H 49 H 26 H Rate Blood Pressure 119/86 129/76 129/76 O2 Sat by Pulse 94 95 95 Oximetry 09/28/20 09/28/20 09/28/20 09:18 09:21 09:30 Temperature Pulse Rate 108 H 107 H Respiratory 34 H 33 H Rate Blood Pressure 129/76 116/81 O2 Sat by Pulse 96 97 98 Oximetry 09/28/20 09/28/20 09/28/20 09:41 09:51 10:00 Temperature Pulse Rate 107 H 107 H 110 H Respiratory 32 H 34 H 27 H Rate Blood Pressure 116/81 116/81 117/79 O2 Sat by Pulse 98 98 97 Oximetry 09/28/20 09/28/20 09/28/20 10:11 10:21 10:30 Temperature Pulse Rate 109 H 109 H 110 H Respiratory 29 H 29 H 31 H Rate Blood Pressure 117/79 117/79 125/77 O2 Sat by Pulse 97 97 97 Oximetry 09/28/20 09/28/20 09/28/20 10:41 10:51 11:00 Temperature Pulse Rate 109 H 110 H 110 H Respiratory 28 H 25 H 28 H Rate Blood Pressure 125/77 125/77 129/77 O2 Sat by Pulse 97 96 97 Oximetry 09/28/20 09/28/20 09/28/20 11:11 11:21 11:30 Temperature Pulse Rate 112 H 111 H 110 H Respiratory 29 H 30 H 27 H Rate Blood Pressure 129/77 129/77 116/78 O2 Sat by Pulse 96 97 96 Oximetry 09/28/20 09/28/20 09/28/20 11:41 11:51 12:00 Temperature 99.0 F Pulse Rate 109 H 108 H 110 H Respiratory 26 H 28 H 28 H Rate Blood Pressure 116/78 116/78 123/73 O2 Sat by Pulse 97 97 97 Oximetry 09/28/20 09/28/20 12:11 12:21 Temperature Pulse Rate 110 H 111 H Respiratory 28 H 27 H Rate Blood Pressure 123/73 123/73 O2 Sat by Pulse 97 97 Oximetry Constitutional: no acute distress Eyes: non-icteric ENT: other (orally intubated and sedated.) Neck: supple Effort: normal Ascultation: Bilateral: clear CBC and BMP: 09/28/20 06:57 09/28/20 06:57 ABG, PT/INR, D-dimer: ABG ABG pH 7.444 (7.320-7.450) 09/28/20 05:57 POC ABG pCO2 30.9 mmHg (32.0-48.0) L 09/28/20 05:57 POC ABG pO2 63.0 mmHg (83-108) L 09/28/20 05:57 POC ABG HCO3 20.7 09/28/20 05:57 Abnormal lab findings: Abnormal Labs 09/26/20 09/26/20 09/26/20 14:58 14:58 14:58 WBC 14.4 H RDW 12.7 L Lymph % (Auto) Lymph # (Auto) [place] # (Auto) Seg Neutrophils % 76.9 H Seg Neutrophils # 11.1 H ABG pH POC ABG pCO2 POC ABG pO2 ABG Oxyhemoglobin ABG Sodium ABG Chloride ABG Glucose Chloride 108.9 H Carbon Dioxide 19 L Glucose POC Glucose Total Bilirubin Total Protein Albumin Arterial Blood Glucose Ur Specific [place] Salicylates < 0.3 L Acetaminophen 09/26/20 09/26/20 09/27/20 14:58 18:00 08:15 WBC RDW Lymph % (Auto) Lymph # (Auto) [place] # (Auto) Seg Neutrophils % Seg Neutrophils # ABG pH 7.224 L POC ABG pCO2 54.8 H POC ABG pO2 ABG Oxyhemoglobin ABG Sodium 155.4 H ABG Chloride 110.0 H ABG Glucose 99 H Chloride Carbon Dioxide Glucose POC Glucose Total Bilirubin Total Protein Albumin Arterial Blood Glucose 99 H Ur Specific [place] 1.031 H Salicylates Acetaminophen 5.0 L 09/27/20 09/27/20 09/27/20 08:58 12:08 12:15 WBC 17.8 H RDW 12.9 L Lymph % (Auto) 6.2 L Lymph # (Auto) 1.1 L [place] # (Auto) 0.9 H Seg Neutrophils % 88.5 H Seg Neutrophils # 15.8 H ABG pH POC ABG pCO2 POC ABG pO2 ABG Oxyhemoglobin ABG Sodium ABG Chloride ABG Glucose 110 H Chloride Carbon Dioxide Glucose POC Glucose 108 H Total Bilirubin Total Protein Albumin Arterial Blood Glucose 110 H Ur Specific [place] Salicylates Acetaminophen 09/27/20 09/28/20 09/28/20 12:15 05:57 06:57 WBC 14.2 H RDW 12.8 L Lymph % (Auto) 10.6 L Lymph # (Auto) [place] # (Auto) 0.9 H Seg Neutrophils % 82.6 H Seg Neutrophils # 11.7 H ABG pH POC ABG pCO2 30.9 L POC ABG pO2 63.0 L ABG Oxyhemoglobin 92.1 L ABG Sodium ABG Chloride ABG Glucose Chloride Carbon Dioxide Glucose 113 H POC Glucose Total Bilirubin 1.60 H Total Protein 6.2 L Albumin 3.8 L Arterial Blood Glucose Ur Specific [place] Salicylates Acetaminophen 09/28/20 06:57 WBC RDW Lymph % (Auto) Lymph # (Auto) [place] # (Auto) Seg Neutrophils % Seg Neutrophils # ABG pH POC ABG pCO2 POC ABG pO2 ABG Oxyhemoglobin ABG Sodium ABG Chloride ABG Glucose Chloride Carbon Dioxide Glucose POC Glucose Total Bilirubin Total Protein 6.0 L Albumin 3.7 L Arterial Blood Glucose Ur Specific [place] Salicylates Acetaminophen
--- NOTE | 2020-09-28 15:00 | Progress Note ---
Assessment and Plan Assessment and plan: --Acute toxic metabolic encephalopathy; Current Visit: Yes Status: Acute Plan to address problem: secondary to drug overdose Patient was intubated on ventilatory support now successfully extubated Patient is still in lethargy, responding to deep stimuli Vital signs noted -- Acute hypoxemic respiratory failure Current Visit: Yes Status: Acute Plan to address problem: Patient intubated and status post extubation On nasal cannula oxygen saturating well Supportive care, pulmonary critical following -- Methamphetamine intoxication Current Visit: Yes Status: Acute Plan to address problem: Poison control notified, benzodiazepine therapy, supportive care. Neurochecks. We will strongly advise to quit recreational drug use when patient is more stable --Systemic inflammatory response syndrome Current Visit: Yes Status: Acute Plan to address problem: CBC, repeat CBC in a.m., IV fluid resuscitation therapy. Follow cultures -- Nicotine dependence Current Visit: Yes Status: Acute . Smoking cessation counseling when patient is more stable Nicotine patch as needed --DVT prophylaxis Current Visit: Yes Status: Acute Plan to address problem: SCD to bilateral lower extremities while in bed, prophylactic anticoagulation Closely monitor the patient and adjust the management as needed Restraints for safety, and for agitation The high probability of a clinically significant, sudden or life threatening deterioration of the [neuro, metabolic and pulmonary] system(s) required my full and direct attention, intervention and personal management. The aggregate critical care time was [33] minutes. This time is in addition to time spent performing reported procedures but includes the following: [x] Data Review and interpretation [x] Patient assessment and monitoring of vital signs [x] Documentation [x] Medication orders and management Consults and recommendations noted and appreciated Plan of care reviewed with the patient's nurse History Interval history: I have seen and examined the patient in ICU this morning at the bedside Patient's chart and medications reviewed Patient was extubated yesterday Still lethargic noncommunicative Respond slightly to deep stimuli Vital signs noted Hospitalist Physical - Constitutional Vitals: Temp Pulse Resp BP Pulse Ox 99.0 F 111 H 27 H 123/73 97 09/28/20 12:00 09/28/20 12:21 09/28/20 12:21 09/28/20 12:21 09/28/20 12:21 General appearance: Present: mild distress, obese, other (On nasal cannula oxygen) - EENT Eyes: Present: PERRL, EOM intact - Neck Neck: Present: supple, normal ROM - Respiratory Respiratory effort: normal Respiratory: bilateral: diminished, rhonchi, negative: rales, wheezing Results - Labs CBC & Chem 7: 09/28/20 06:57 09/28/20 06:57 Labs: Laboratory Last Values WBC 14.2 K/mm3 (4.5-11.0) H 09/28/20 06:57 RBC 4.17 M/mm3 (3.65-5.03) 09/28/20 06:57 Hgb 13.4 gm/dl (10.1-14.3) 09/28/20 06:57 Hct 39.8 % (30.3-42.9) 09/28/20 06:57 MCV 95 fl (79-97) 09/28/20 06:57 MCH 32 pg (28-32) 09/28/20 06:57 MCHC 34 % (30-34) 09/28/20 06:57 RDW 12.8 % (13.2-15.2) L 09/28/20 06:57 Plt Count 267 K/mm3 (140-440) 09/28/20 06:57 Lymph % (Auto) 10.6 % (13.4-35.0) L 09/28/20 06:57 [place] % (Auto) 6.2 % (0.0-7.3) 09/28/20 06:57 Eos % (Auto) 0.4 % (0.0-4.3) 09/28/20 06:57 Baso % (Auto) 0.2 % (0.0-1.8) 09/28/20 06:57 Lymph # (Auto) 1.5 K/mm3 (1.2-5.4) 09/28/20 06:57 [place] # (Auto) 0.9 K/mm3 (0.0-0.8) H 09/28/20 06:57 Eos # (Auto) 0.1 K/mm3 (0.0-0.4) 09/28/20 06:57 Baso # (Auto) 0.0 K/mm3 (0.0-0.1) 09/28/20 06:57 Seg Neutrophils % 82.6 % (40.0-70.0) H 09/28/20 06:57 Seg Neutrophils # 11.7 K/mm3 (1.8-7.7) H 09/28/20 06:57 ABG pH 7.444 (7.320-7.450) 09/28/20 05:57 POC ABG pCO2 30.9 mmHg (32.0-48.0) L 09/28/20 05:57 POC ABG pO2 63.0 mmHg (83-108) L 09/28/20 05:57 POC ABG HCO3 20.7 09/28/20 05:57 POC ABG Base Excess -2.3 09/28/20 05:57 ABG Hemoglobin 13.8 (12.0-17.5) 09/28/20 05:57 ABG Oxyhemoglobin 92.1 (94-98) L 09/28/20 05:57 ABG Methemoglobin 0.3 (0.0-1.5) 09/28/20 05:57 ABG Sodium 137.5 mmol/L (136.0-145.0) 09/28/20 05:57 ABG Potassium 4.1 mmol/L (3.40-4.50) 09/28/20 05:57 ABG Chloride 106.0 mmol/L (98-107) 09/28/20 05:57 ABG Glucose 95 mg/dL (65-95) 09/28/20 05:57 Carboxyhemoglobin 0.7 (0.5-1.5) 09/28/20 05:57 FiO2 50 09/28/20 05:57 Sodium 139 mmol/L (137-145) 09/28/20 06:57 Potassium 4.4 mmol/L (3.6-5.0) 09/28/20 06:57 Chloride 105.6 mmol/L (98-107) 09/28/20 06:57 Carbon Dioxide 23 mmol/L (22-30) 09/28/20 06:57 Anion Gap 15 mmol/L 09/28/20 06:57 BUN 15 mg/dL (7-17) 09/28/20 06:57 Creatinine 0.7 mg/dL (0.6-1.2) 09/28/20 06:57 Estimated GFR > 60 ml/min 09/28/20 06:57 BUN/Creatinine Ratio 21 % 09/28/20 06:57 Glucose 87 mg/dL (65-100) 09/28/20 06:57 POC Glucose 94 mg/dL (70-105) 09/28/20 05:03 Calcium 8.6 mg/dL (8.4-10.2) 09/28/20 06:57 Total Bilirubin 1.20 mg/dL (0.1-1.2) 09/28/20 06:57 AST 36 units/L (5-40) 09/28/20 06:57 ALT 18 units/L (7-56) 09/28/20 06:57 Alkaline Phosphatase 52 units/L (35-129) 09/28/20 06:57 Total Protein 6.0 g/dL (6.3-8.2) L 09/28/20 06:57 Albumin 3.7 g/dL (3.9-5) L 09/28/20 06:57 Albumin/Globulin Ratio 1.6 % 09/28/20 06:57 TSH 2.960 mlU/mL (0.270-4.200) 09/26/20 14:58 HCG, Qual Negative (Negative) 09/26/20 14:58 Arterial Blood Glucose 95 mg/dL (65-95) 09/28/20 05:57 Arterial Blood Ionized Calcium 4.7 mg/dL (4.6-5.3) 09/28/20 05:57 Urine Color Yellow (Yellow) 09/27/20 08:15 Urine Turbidity Slightly-cloudy (Clear) 09/27/20 08:15 Urine pH 6.0 (5.0-7.0) 09/27/20 08:15 Ur Specific [place] 1.031 (1.003-1.030) H 09/27/20 08:15 Urine Protein 30 mg/dl mg/dL (Negative) 09/27/20 08:15 Urine Glucose (UA) Neg mg/dL (Negative) 09/27/20 08:15 Urine Ketones Tr mg/dL (Negative) 09/27/20 08:15 Urine Blood Mod (Negative) 09/27/20 08:15 Urine Nitrite Neg (Negative) 09/27/20 08:15 Urine Bilirubin Neg (Negative) 09/27/20 08:15 Urine Urobilinogen < 2.0 mg/dL (<2.0) 09/27/20 08:15 Ur Leukocyte Esterase Neg (Negative) 09/27/20 08:15 Urine WBC (Auto) 3.0 /HPF (0.0-6.0) 09/27/20 08:15 Urine RBC (Auto) 10.0 /HPF (0.0-6.0) 09/27/20 08:15 U Epithel Cells (Auto) 1.0 /HPF (0-13.0) 09/27/20 08:15 Urine Mucus 2+ /HPF 09/27/20 08:15 Salicylates < 0.3 mg/dL (2.8-20.0) L 09/26/20 14:58 Urine Opiates Screen Negative 09/27/20 08:15 Urine Methadone Screen Negative 09/27/20 08:15 Acetaminophen 5.0 ug/mL (10.0-30.0) L 09/26/20 14:58 Ur Barbiturates Screen Negative 09/27/20 08:15 Ur Phencyclidine Scrn Negative 09/27/20 08:15 Ur Amphetamines Screen Positive 09/27/20 08:15 U Benzodiazepines Scrn Negative 09/27/20 08:15 Urine Cocaine Screen Negative 09/27/20 08:15 U Marijuana (THC) Screen Positive 09/27/20 08:15 Drugs of Abuse Note Disclamer 09/27/20 08:15 Plasma/Serum Alcohol < 0.01 % (0-0.07) 09/26/20 14:58 Burt/IV: Voiding Method Indwelling Catheter IV Catheter Type [Left Hand] Peripheral IV Active Medications - Current Medications Current Medications: Generic Name Dose Route Start Last Admin Trade Name Freq PRN Reason Stop Dose Admin Heparin Sodium (Porcine) 5,000 unit 09/26/20 22:00 09/28/20 09:13 Heparin 5,000 Unit/1 Ml Vial SUB-Q 5,000 unit Q12HR HEMANTH Administration Hydrophilic Ointment 1 applic 09/26/20 17:15 Lip Therapy Vaseline TP Q2HR PRN Dry Lips Sodium Chloride 1,000 mls @ 125 mls/hr 09/26/20 17:15 Nacl 0.9% 1000 Ml IV DIRECT HEMANTH Multi-Ingred Cream/Lotion/Oil/Oint 1 applic 09/26/20 17:15 Mineral Oil/Petrolatum, White Ophth Oint 3.5 Gm OU Q4HR PRN Dry Eye(s) Sodium Chloride 10 ml 09/26/20 22:00 09/28/20 09:13 Sodium Chloride 0.9% 10 Ml Flush Syringe IV 10 ml BID HEMANTH Administration Sodium Chloride 10 ml 09/26/20 17:15 Sodium Chloride 0.9% 10 Ml Flush Syringe IV PRN PRN LINE FLUSH Nutrition/Malnutrition Assess - Dietary Evaluation Nutrition/Malnutrition Findings: Nutrition Notes Start: 09/27/20 11:12 Freq: Status: Active Protocol: Document 09/28/20 11:48 AT (Rec: 09/28/20 11:58 AT [email or web address]) Co-Sign 09/28/20 11:48 LP Nutrition Notes Initial or Follow up Brief Note Current Diagnosis Respiratory Failure Other Pertinent Diagnosis SIRS, Tachycardia, Methamphetamine Overdose, AMS Current Diet NPO Height 5 ft 4 in Weight 79.2 kg [place] Body Weight (kg) 54.54 BMI 29.9 Subjective/Other Information Follow up for vent status and diet advancement. Pt is extubated and has been switched to CPAP. Will follow up tomorrow for reassessment. Is patient on ventilator? No Is Patient Ambulatory and/or Out of Bed Yes REE-([place] Jeor-ambulatory/OOB) [ 1972.100 [id number]] Additional Notes PRO needs: 54-68g (0.8 - 1g/kg AdBW 68kg) Fluid needs: 1 mL/kcal Nutrition Intervention Follow-Up By: 09/29/20 Additional Comments F/U for diet advancement/POC
[2020-09-28 17:39] LABS: Bilirubin,Urine SM (Negative); Blood,Urine NEG (Negative); Color,Urine Amber (Yellow); Mucus,Urine 3+ /HPF
[2020-09-28 17:55] LABS: Ictotest,Urine Negative (Negative)
[2020-09-28] MEDS: SODIUM CHLORIDE 0.9% 1000 ML 1,000 ML IV SCH (18:18)
[2020-09-29] MEDS: SODIUM CHLORIDE 0.9% 1000 ML 1,000 ML IV SCH ×2 (02:21→10:30)
[2020-09-29 06:05] LABS: Alanine Aminotransferase 16 units/L (7-56); Blood Urea Nitrogen 16 mg/dL (7-17); Calcium 8.2 mg/dL (8.4-10.2); Hemolysis Index 0
[2020-09-29 06:08] LABS: BUN/Creatinine Ratio 27
[2020-09-29] MEDS ORDERED: PANTOPRAZOLE 40 MG TAB PO SCH (10:00)
[2020-09-29] MEDS: HEPARIN 5,000 UNIT/1 ML VIAL SUB-Q SCH (10:29)
--- NOTE | 2020-09-29 12:38 | Progress Note ---
Assessment and Plan 25 y/o with drug overdose. 09/29/20: Will sign off. Please transfer out of IMCU. Stopped PRN ativan Wean supplemental O2 for sats >88% Given BMI, neck size, could benefit from outpatient screening for RAMU and likely PSG Will see PRN. Subjective Date of service: 09/29/20 Interval history: Now on room air. Eating. Objective Vital Signs - 12hr 09/29/20 09/29/20 09/29/20 00:41 00:51 01:00 Temperature Pulse Rate 104 H 100 H 100 H Pulse Rate [ From Monitor] Respiratory 26 H 24 26 H Rate Blood Pressure 100/63 100/63 94/61 O2 Sat by Pulse 94 95 95 Oximetry 09/29/20 09/29/20 09/29/20 01:11 01:21 01:30 Temperature Pulse Rate 97 H 98 H 99 H Pulse Rate [ From Monitor] Respiratory 28 H 25 H 26 H Rate Blood Pressure 94/61 94/61 100/60 O2 Sat by Pulse 96 95 Oximetry 09/29/20 09/29/20 09/29/20 01:41 01:50 02:00 Temperature Pulse Rate 98 H 98 H 99 H Pulse Rate [ From Monitor] Respiratory 25 H 25 H 26 H Rate Blood Pressure 100/60 100/60 99/61 O2 Sat by Pulse 95 95 95 Oximetry 09/29/20 09/29/20 09/29/20 02:11 02:21 02:30 Temperature Pulse Rate 97 H 97 H 92 H Pulse Rate [ From Monitor] Respiratory 25 H 20 29 H Rate Blood Pressure 99/61 99/61 100/67 O2 Sat by Pulse 95 96 93 Oximetry 09/29/20 09/29/20 09/29/20 02:41 02:51 03:00 Temperature Pulse Rate 94 H 106 H Pulse Rate [ From Monitor] Respiratory 29 H 22 28 H Rate Blood Pressure 100/67 100/67 115/61 O2 Sat by Pulse 95 94 97 Oximetry 09/29/20 09/29/20 09/29/20 03:11 03:21 03:30 Temperature Pulse Rate 97 H 96 H 99 H Pulse Rate [ From Monitor] Respiratory 14 21 21 Rate Blood Pressure 115/61 115/61 107/73 O2 Sat by Pulse 96 96 96 Oximetry 09/29/20 09/29/20 09/29/20 03:36 03:41 03:47 Temperature 98.7 F Pulse Rate 106 H 96 H Pulse Rate [ From Monitor] Respiratory 18 Rate Blood Pressure 107/73 O2 Sat by Pulse 95 Oximetry 09/29/20 09/29/20 09/29/20 03:51 04:00 04:01 Temperature Pulse Rate 90 103 H Pulse Rate [ 89 From Monitor] Respiratory 18 29 H Rate Blood Pressure 107/73 111/72 O2 Sat by Pulse 96 95 97 Oximetry 09/29/20 09/29/20 09/29/20 04:11 04:21 04:30 Temperature Pulse Rate 91 H 93 H 91 H Pulse Rate [ From Monitor] Respiratory 24 26 H 15 Rate Blood Pressure 111/72 111/72 107/67 O2 Sat by Pulse 95 94 94 Oximetry 09/29/20 09/29/20 09/29/20 04:41 04:51 05:00 Temperature Pulse Rate 93 H 92 H 100 H Pulse Rate [ From Monitor] Respiratory 26 H 20 25 H Rate Blood Pressure 111/72 111/72 106/69 O2 Sat by Pulse 98 95 96 Oximetry 09/29/20 09/29/20 09/29/20 05:11 05:21 05:30 Temperature Pulse Rate 92 H 106 H 96 H Pulse Rate [ From Monitor] Respiratory 22 19 26 H Rate Blood Pressure 106/69 106/69 107/60 O2 Sat by Pulse 95 87 Oximetry 09/29/20 09/29/20 09/29/20 05:41 05:51 06:00 Temperature Pulse Rate 92 H 91 H 87 Pulse Rate [ From Monitor] Respiratory 19 24 27 H Rate Blood Pressure 107/60 107/60 108/67 O2 Sat by Pulse 92 92 91 Oximetry 09/29/20 09/29/20 09/29/20 06:11 06:21 06:30 Temperature Pulse Rate 87 86 83 Pulse Rate [ From Monitor] Respiratory 27 H 21 30 H Rate Blood Pressure 108/67 108/67 108/72 O2 Sat by Pulse 94 94 98 Oximetry 09/29/20 09/29/20 09/29/20 06:41 07:00 07:56 Temperature 98.6 F Pulse Rate 81 84 Pulse Rate [ From Monitor] Respiratory 27 H 23 Rate Blood Pressure 108/72 114/78 O2 Sat by Pulse 95 94 Oximetry 09/29/20 09/29/20 09/29/20 08:00 08:24 12:00 Temperature 98.2 F Pulse Rate 97 H Pulse Rate [ From Monitor] Respiratory 25 H Rate Blood Pressure 109/73 O2 Sat by Pulse 96 96 Oximetry Constitutional: no acute distress Eyes: non-icteric ENT: other (orally intubated and sedated.) Neck: supple Effort: normal Ascultation: Bilateral: clear CBC and BMP: 09/28/20 06:57 09/29/20 05:22 ABG, PT/INR, D-dimer: ABG ABG pH 7.444 (7.320-7.450) 09/28/20 05:57 POC ABG pCO2 30.9 mmHg (32.0-48.0) L 09/28/20 05:57 POC ABG pO2 63.0 mmHg (83-108) L 09/28/20 05:57 POC ABG HCO3 20.7 09/28/20 05:57 Abnormal lab findings: Abnormal Labs 09/26/20 09/26/20 09/26/20 14:58 14:58 14:58 WBC 14.4 H RDW 12.7 L Lymph % (Auto) Lymph # (Auto) [place] # (Auto) Seg Neutrophils % 76.9 H Seg Neutrophils # 11.1 H ABG pH POC ABG pCO2 POC ABG pO2 ABG Oxyhemoglobin ABG Sodium ABG Chloride ABG Glucose Chloride 108.9 H Carbon Dioxide 19 L Glucose POC Glucose Calcium Total Bilirubin Total Creatine Kinase Total Protein Albumin Arterial Blood Glucose Ur Specific [place] Urine WBC (Auto) Salicylates < 0.3 L Acetaminophen 09/26/20 09/26/20 09/27/20 14:58 18:00 05:34 WBC RDW Lymph % (Auto) Lymph # (Auto) [place] # (Auto) Seg Neutrophils % Seg Neutrophils # ABG pH 7.224 L 7.462 H POC ABG pCO2 54.8 H 29.2 L POC ABG pO2 71.2 L ABG Oxyhemoglobin ABG Sodium 155.4 H ABG Chloride 110.0 H 108.0 H ABG Glucose 99 H 114 H Chloride Carbon Dioxide Glucose POC Glucose Calcium Total Bilirubin Total Creatine Kinase Total Protein Albumin Arterial Blood Glucose 99 H 114 H Ur Specific [place] Urine WBC (Auto) Salicylates Acetaminophen 5.0 L 09/27/20 09/27/20 09/27/20 08:15 08:58 12:08 WBC RDW Lymph % (Auto) Lymph # (Auto) [place] # (Auto) Seg Neutrophils % Seg Neutrophils # ABG pH POC ABG pCO2 POC ABG pO2 ABG Oxyhemoglobin ABG Sodium ABG Chloride ABG Glucose 110 H Chloride Carbon Dioxide Glucose POC Glucose 108 H Calcium Total Bilirubin Total Creatine Kinase Total Protein Albumin Arterial Blood Glucose 110 H Ur Specific [place] 1.031 H Urine WBC (Auto) Salicylates Acetaminophen 09/27/20 09/27/20 09/28/20 12:15 12:15 05:57 WBC 17.8 H RDW 12.9 L Lymph % (Auto) 6.2 L Lymph # (Auto) 1.1 L [place] # (Auto) 0.9 H Seg Neutrophils % 88.5 H Seg Neutrophils # 15.8 H ABG pH POC ABG pCO2 30.9 L POC ABG pO2 63.0 L ABG Oxyhemoglobin 92.1 L ABG Sodium ABG Chloride ABG Glucose Chloride Carbon Dioxide Glucose 113 H POC Glucose Calcium Total Bilirubin 1.60 H Total Creatine Kinase Total Protein 6.2 L Albumin 3.8 L Arterial Blood Glucose Ur Specific [place] Urine WBC (Auto) Salicylates Acetaminophen 09/28/20 09/28/20 09/28/20 06:57 06:57 17:25 WBC 14.2 H RDW 12.8 L Lymph % (Auto) 10.6 L Lymph # (Auto) [place] # (Auto) 0.9 H Seg Neutrophils % 82.6 H Seg Neutrophils # 11.7 H ABG pH POC ABG pCO2 POC ABG pO2 ABG Oxyhemoglobin ABG Sodium ABG Chloride ABG Glucose Chloride Carbon Dioxide Glucose POC Glucose Calcium Total Bilirubin Total Creatine Kinase Total Protein 6.0 L Albumin 3.7 L Arterial Blood Glucose Ur Specific [place] 1.042 H Urine WBC (Auto) 25.0 H Salicylates Acetaminophen 09/28/20 09/28/20 09/29/20 17:40 23:12 05:22 WBC RDW Lymph % (Auto) Lymph # (Auto) [place] # (Auto) Seg Neutrophils % Seg Neutrophils # ABG pH POC ABG pCO2 POC ABG pO2 ABG Oxyhemoglobin ABG Sodium ABG Chloride ABG Glucose Chloride Carbon Dioxide Glucose POC Glucose 65 L Calcium 8.2 L Total Bilirubin Total Creatine Kinase 372 H 278 H Total Protein 5.9 L Albumin 3.0 L Arterial Blood Glucose Ur Specific [place] Urine WBC (Auto) Salicylates Acetaminophen
--- NOTE | 2020-09-29 15:17 | Progress Note ---
Assessment and Plan Assessment and plan: --Acute toxic metabolic encephalopathy; Current Visit: Yes Status: Acute Plan to address problem: secondary to drug overdose Patient was extubated on 09/27/2020 More alert and awake today responding appropriately -- Acute hypoxemic respiratory failure; present on admission Current Visit: Yes Status: Acute Plan to address problem: Patient intubated and status post extubation We will check room air O2 sats resting and ambulatory -- Methamphetamine intoxication Current Visit: Yes Status: Acute Plan to address problem: Poison control notified, benzodiazepine therapy, symptoms resolved patient denies any suicidal thoughts ideation or attempt Patient denies any thoughts of depression No known psych history --Systemic inflammatory response syndrome Current Visit: Yes Status: Acute Plan to address problem: CBC, repeat CBC in a.m., IV fluid resuscitation therapy. Follow cultures -- Nicotine dependence Current Visit: Yes Status: Acute . Smoking cessation counseling when patient is more stable Nicotine patch as needed --DVT prophylaxis Current Visit: Yes Status: Acute Plan to address problem: SCD to bilateral lower extremities while in bed, prophylactic anticoagulation Patient is stable to be transferred out of ICU to telemetry. Out of bed to chair, ambulate as tolerated Possible discharge in 1 to 2 days if stable And of care reviewed with the patient and her nurse The high probability of a clinically significant, sudden or life threatening deterioration of the [neuro, metabolic and pulmonary] system(s) required my full and direct attention, intervention and personal management. The aggregate critical care time was [31] minutes. This time is in addition to time spent performing reported procedures but includes the following: [x] Data Review and interpretation [x] Patient assessment and monitoring of vital signs [x] Documentation [x] Medication orders and management Consults and recommendations noted and appreciated Plan of care reviewed with the patient's nurse History Interval history: I have seen and examined the patient at the bedside Patient's chart and medications reviewed Patient is more alert awake oriented x3 today Responding appropriately Patient denies intentional overdose, denies depression Denies suicidal thoughts or ideation Never had any psych problems before No new complaints vital signs stable Hospitalist Physical - Constitutional Vitals: Temp Pulse Resp BP Pulse Ox 98.2 F 97 H 25 H 109/73 96 09/29/20 12:00 09/29/20 08:00 09/29/20 08:00 09/29/20 08:00 09/29/20 08:24 General appearance: Present: no acute distress, well-nourished, obese - EENT Eyes: Present: PERRL, EOM intact - Neck Neck: Present: supple, normal ROM - Respiratory Respiratory effort: normal Respiratory: bilateral: diminished, rhonchi, negative: rales, wheezing - Cardiovascular Rhythm: regular Heart Sounds: Present: S1 & S2 - Extremities Extremities: no ischemia, No edema - Abdominal General gastrointestinal: soft, non-tender, non-distended, normal bowel sounds - Integumentary Integumentary: Present: clear, warm - Psychiatric Psychiatric: appropriate mood/affect, cooperative - Neurologic Neurologic: CNII-XII intact, moves all extremities Results - Labs CBC & Chem 7: 09/28/20 06:57 09/29/20 05:22 Labs: Laboratory Last Values WBC 14.2 K/mm3 (4.5-11.0) H 09/28/20 06:57 RBC 4.17 M/mm3 (3.65-5.03) 09/28/20 06:57 Hgb 13.4 gm/dl (10.1-14.3) 09/28/20 06:57 Hct 39.8 % (30.3-42.9) 09/28/20 06:57 MCV 95 fl (79-97) 09/28/20 06:57 MCH 32 pg (28-32) 09/28/20 06:57 MCHC 34 % (30-34) 09/28/20 06:57 RDW 12.8 % (13.2-15.2) L 09/28/20 06:57 Plt Count 267 K/mm3 (140-440) 09/28/20 06:57 Lymph % (Auto) 10.6 % (13.4-35.0) L 09/28/20 06:57 [place] % (Auto) 6.2 % (0.0-7.3) 09/28/20 06:57 Eos % (Auto) 0.4 % (0.0-4.3) 09/28/20 06:57 Baso % (Auto) 0.2 % (0.0-1.8) 09/28/20 06:57 Lymph # (Auto) 1.5 K/mm3 (1.2-5.4) 09/28/20 06:57 [place] # (Auto) 0.9 K/mm3 (0.0-0.8) H 09/28/20 06:57 Eos # (Auto) 0.1 K/mm3 (0.0-0.4) 09/28/20 06:57 Baso # (Auto) 0.0 K/mm3 (0.0-0.1) 09/28/20 06:57 Seg Neutrophils % 82.6 % (40.0-70.0) H 09/28/20 06:57 Seg Neutrophils # 11.7 K/mm3 (1.8-7.7) H 09/28/20 06:57 ABG pH 7.444 (7.320-7.450) 09/28/20 05:57 POC ABG pCO2 30.9 mmHg (32.0-48.0) L 09/28/20 05:57 POC ABG pO2 63.0 mmHg (83-108) L 09/28/20 05:57 POC ABG HCO3 20.7 09/28/20 05:57 POC ABG Base Excess -2.3 09/28/20 05:57 ABG Hemoglobin 13.8 (12.0-17.5) 09/28/20 05:57 ABG Oxyhemoglobin 92.1 (94-98) L 09/28/20 05:57 ABG Methemoglobin 0.3 (0.0-1.5) 09/28/20 05:57 ABG Sodium 137.5 mmol/L (136.0-145.0) 09/28/20 05:57 ABG Potassium 4.1 mmol/L (3.40-4.50) 09/28/20 05:57 ABG Chloride 106.0 mmol/L (98-107) 09/28/20 05:57 ABG Glucose 95 mg/dL (65-95) 09/28/20 05:57 Carboxyhemoglobin 0.7 (0.5-1.5) 09/28/20 05:57 FiO2 50 09/28/20 05:57 Sodium 139 mmol/L (137-145) 09/29/20 05:22 Potassium 3.6 mmol/L (3.6-5.0) 09/29/20 05:22 Chloride 106.1 mmol/L (98-107) 09/29/20 05:22 Carbon Dioxide 23 mmol/L (22-30) 09/29/20 05:22 Anion Gap 14 mmol/L 09/29/20 05:22 BUN 16 mg/dL (7-17) 09/29/20 05:22 Creatinine 0.6 mg/dL (0.6-1.2) 09/29/20 05:22 Estimated GFR > 60 ml/min 09/29/20 05:22 BUN/Creatinine Ratio 27 % 09/29/20 05:22 Glucose 84 mg/dL (65-100) 09/29/20 05:22 POC Glucose 77 mg/dL (70-105) 09/29/20 11:40 Calcium 8.2 mg/dL (8.4-10.2) L 09/29/20 05:22 Total Bilirubin 0.80 mg/dL (0.1-1.2) 09/29/20 05:22 AST 25 units/L (5-40) 09/29/20 05:22 ALT 16 units/L (7-56) 09/29/20 05:22 Alkaline Phosphatase 43 units/L (35-129) 09/29/20 05:22 Total Creatine Kinase 278 units/L (30-135) H 09/29/20 05:22 Total Protein 5.9 g/dL (6.3-8.2) L 09/29/20 05:22 Albumin 3.0 g/dL (3.9-5) L 09/29/20 05:22 Albumin/Globulin Ratio 1.0 % 09/29/20 05:22 TSH 2.960 mlU/mL (0.270-4.200) 09/26/20 14:58 HCG, Qual Negative (Negative) 09/26/20 14:58 Arterial Blood Glucose 95 mg/dL (65-95) 09/28/20 05:57 Arterial Blood Ionized Calcium 4.7 mg/dL (4.6-5.3) 09/28/20 05:57 Urine Color Donya (Yellow) 09/28/20 17:25 Urine Turbidity Turbid (Clear) 09/28/20 17:25 Urine pH 5.0 (5.0-7.0) 09/28/20 17:25 Ur Specific [place] 1.042 (1.003-1.030) H 09/28/20 17:25 Urine Protein 100 mg/dl mg/dL (Negative) 09/28/20 17:25 Urine Glucose (UA) Neg mg/dL (Negative) 09/28/20 17:25 Urine Ketones 80 mg/dL (Negative) 09/28/20 17:25 Urine Blood Neg (Negative) 09/28/20 17:25 Urine Nitrite Neg (Negative) 09/28/20 17:25 Urine Bilirubin Sm (Negative) 09/28/20 17:25 Urine Ictotest Negative (Negative) 09/28/20 17:25 Urine Urobilinogen 2.0 mg/dL (<2.0) 09/28/20 17:25 Ur Leukocyte Esterase Neg (Negative) 09/28/20 17:25 Urine WBC (Auto) 25.0 /HPF (0.0-6.0) H 09/28/20 17:25 Urine RBC (Auto) 10.0 /HPF (0.0-6.0) 09/28/20 17:25 U Epithel Cells (Auto) 4.0 /HPF (0-13.0) 09/28/20 17:25 Urine WBC Clumps 3+ /HPF 09/28/20 17:25 Urine Mucus 3+ /HPF 09/28/20 17:25 Urine Yeast (Budding) 2+ /HPF 09/28/20 17:25 Salicylates < 0.3 mg/dL (2.8-20.0) L 09/26/20 14:58 Urine Opiates Screen Negative 09/27/20 08:15 Urine Methadone Screen Negative 09/27/20 08:15 Acetaminophen 5.0 ug/mL (10.0-30.0) L 09/26/20 14:58 Ur Barbiturates Screen Negative 09/27/20 08:15 Ur Phencyclidine Scrn Negative 09/27/20 08:15 Ur Amphetamines Screen Positive 09/27/20 08:15 U Benzodiazepines Scrn Negative 09/27/20 08:15 Urine Cocaine Screen Negative 09/27/20 08:15 U Marijuana (THC) Screen Positive 09/27/20 08:15 Drugs of Abuse Note Disclamer 09/27/20 08:15 Plasma/Serum Alcohol < 0.01 % (0-0.07) 09/26/20 14:58 Microbiology: Microbiology 09/28/20 17:25 Urine,Clean Catch Urine Culture - Preliminary 09/26/20 18:10 Tracheal Aspirate Sputum Culture - Final Burt/IV: Voiding Method Indwelling Catheter IV Catheter Type [Right Wrist] Peripheral IV IV Catheter Type [Left Hand] Peripheral IV Active Medications - Current Medications Current Medications: Generic Name Dose Route Start Last Admin Trade Name Freq PRN Reason Stop Dose Admin Heparin Sodium (Porcine) 5,000 unit 09/26/20 22:00 09/29/20 10:29 Heparin 5,000 Unit/1 Ml Vial SUB-Q 5,000 unit Q12HR HEMANTH Administration Hydrophilic Ointment 1 applic 09/26/20 17:15 09/28/20 21:57 Lip Therapy Vaseline TP 1 applic Q2HR PRN Administration Dry Lips Sodium Chloride 1,000 mls @ 125 mls/hr 09/26/20 17:15 09/29/20 10:30 Nacl 0.9% 1000 Ml IV 125 mls/hr DIRECT HEMANTH Administration Multi-Ingred Cream/Lotion/Oil/Oint 1 applic 09/26/20 17:15 Mineral Oil/Petrolatum, White Ophth Oint 3.5 Gm OU Q4HR PRN Dry Eye(s) Pantoprazole Sodium 40 mg 09/29/20 10:00 09/29/20 10:29 Pantoprazole 40 Mg Tab PO 40 mg QDAC HEMANTH Administration Sodium Chloride 10 ml 09/26/20 22:00 09/29/20 10:31 Sodium Chloride 0.9% 10 Ml Flush Syringe IV 10 ml BID HEMANTH Administration Sodium Chloride 10 ml 09/26/20 17:15 Sodium Chloride 0.9% 10 Ml Flush Syringe IV PRN PRN LINE FLUSH Nutrition/Malnutrition Assess - Dietary Evaluation Nutrition/Malnutrition Findings: Nutrition Notes Start: 09/27/20 11:12 Freq: Status: Active Protocol: Document 09/29/20 12:19 AT (Rec: 09/29/20 12:35 AT [email or web address]) Co-Sign 09/29/20 12:19 NHALL Nutrition Notes Initial or Follow up Reassessment Current Diagnosis Respiratory Failure Other Pertinent Diagnosis SIRS, Tachycardia, Methamphetamine Overdose, AMS Current Diet Mechanical Soft Labs/Tests Reviewed Pertinent Medications Protonix NS at 125 mL/hr Height 5 ft 4 in Weight 79.2 kg [place] Body Weight (kg) 54.54 BMI 29.9 Intake Prior to Admission Good Subjective/Other Information Follow up for diet advancement . Per chart/MD, diet will advance after bedside swallow study. Visited pt at bedside, pt reports that she has no difficulties swallowing and does not need mechanical soft. 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 Pt remains without O2. Burn Absent Trauma Absent GI Symptoms None Minimum of two criteria No Reduced Fiber Picker Strength Measurably Reduced (severe) #1 Nutrition Diagnosis Inadequate oral intake As Evidenced by Signs and Symptoms Pt's diet advanced to mechanical soft Diagnosis Progress(for reassessment Improved documentation) Is patient on ventilator? No Is Patient Ambulatory and/or Out of Bed Yes REE-([place]-St. Jeor-ambulatory/OOB) [ 1972.100 NUTR.MSJOOB] Kcal/Kg value to use for calculation 22 Approximate Energy Requirements Using 1742 kcal/Kg Additional Notes PRO needs: 54-68g (0.8-1 g/kg AdBW 68kg) Fluid needs: 1 mL/kcal Nutrition Intervention Change Diet Order: Regular Diet Goal #1 Meet at least 75% of estimated energy and protein needs. Goal #2 Diet advancement as tolerated Anticipated Discharge Needs: Regular diet Follow-Up By: 10/04/20 Additional Comments F/U for intakes and diet advancement
[2020-09-30] MEDS: HEPARIN 5,000 UNIT/1 ML VIAL SUB-Q SCH (02:07)
[2020-09-30 05:07] VITALS: BP 119/75
--- NOTE | 2020-09-30 09:14 | Progress Note ---
Assessment and Plan Assessment and plan: --Acute toxic metabolic encephalopathy; Current Visit: Yes Status: Acute Plan to address problem: secondary to drug overdose Patient was extubated on 09/27/2020 More alert and awake today responding appropriately -- Acute hypoxemic respiratory failure; present on admission Current Visit: Yes Status: Acute Plan to address problem: Patient intubated and status post extubation We will check room air O2 sats resting and ambulatory -- Methamphetamine intoxication Current Visit: Yes Status: Acute Plan to address problem: Poison control notified, benzodiazepine therapy, symptoms resolved patient denies any suicidal thoughts ideation or attempt Patient denies any thoughts of depression No known psych history --Systemic inflammatory response syndrome Current Visit: Yes Status: Acute Plan to address problem: CBC, repeat CBC in a.m., IV fluid resuscitation therapy. Follow cultures -- Nicotine dependence Current Visit: Yes Status: Acute . Smoking cessation counseling when patient is more stable Nicotine patch as needed --DVT prophylaxis Current Visit: Yes Status: Acute Plan to address problem: SCD to bilateral lower extremities while in bed, prophylactic anticoagulation Patient is stable to be transferred out of ICU to telemetry. Out of bed to chair, ambulate as tolerated Possible discharge in 1 to 2 days if stable And of care reviewed with the patient and her nurse The high probability of a clinically significant, sudden or life threatening deterioration of the [neuro, metabolic and pulmonary] system(s) required my full and direct attention, intervention and personal management. The aggregate critical care time was [31] minutes. This time is in addition to time spent performing reported procedures but includes the following: [x] Data Review and interpretation [x] Patient assessment and monitoring of vital signs [x] Documentation [x] Medication orders and management Consults and recommendations noted and appreciated Plan of care reviewed with the patient's nurse Hospitalist Physical - Constitutional Vitals: Temp Pulse Resp BP Pulse Ox 98.2 F 96 H 18 119/75 97 09/30/20 04:08 09/30/20 04:08 09/30/20 04:08 09/30/20 04:08 09/30/20 04:08 General appearance: Present: no acute distress, well-nourished, obese Results - Labs CBC & Chem 7: 09/28/20 06:57 09/29/20 05:22 Labs: Laboratory Last Values WBC 14.2 K/mm3 (4.5-11.0) H 09/28/20 06:57 RBC 4.17 M/mm3 (3.65-5.03) 09/28/20 06:57 Hgb 13.4 gm/dl (10.1-14.3) 09/28/20 06:57 Hct 39.8 % (30.3-42.9) 09/28/20 06:57 MCV 95 fl (79-97) 09/28/20 06:57 MCH 32 pg (28-32) 09/28/20 06:57 MCHC 34 % (30-34) 09/28/20 06:57 RDW 12.8 % (13.2-15.2) L 09/28/20 06:57 Plt Count 267 K/mm3 (140-440) 09/28/20 06:57 Lymph % (Auto) 10.6 % (13.4-35.0) L 09/28/20 06:57 [place] % (Auto) 6.2 % (0.0-7.3) 09/28/20 06:57 Eos % (Auto) 0.4 % (0.0-4.3) 09/28/20 06:57 Baso % (Auto) 0.2 % (0.0-1.8) 09/28/20 06:57 Lymph # (Auto) 1.5 K/mm3 (1.2-5.4) 09/28/20 06:57 [place] # (Auto) 0.9 K/mm3 (0.0-0.8) H 09/28/20 06:57 Eos # (Auto) 0.1 K/mm3 (0.0-0.4) 09/28/20 06:57 Baso # (Auto) 0.0 K/mm3 (0.0-0.1) 09/28/20 06:57 Seg Neutrophils % 82.6 % (40.0-70.0) H 09/28/20 06:57 Seg Neutrophils # 11.7 K/mm3 (1.8-7.7) H 09/28/20 06:57 ABG pH 7.444 (7.320-7.450) 09/28/20 05:57 POC ABG pCO2 30.9 mmHg (32.0-48.0) L 09/28/20 05:57 POC ABG pO2 63.0 mmHg (83-108) L 09/28/20 05:57 POC ABG HCO3 20.7 09/28/20 05:57 POC ABG Base Excess -2.3 09/28/20 05:57 ABG Hemoglobin 13.8 (12.0-17.5) 09/28/20 05:57 ABG Oxyhemoglobin 92.1 (94-98) L 09/28/20 05:57 ABG Methemoglobin 0.3 (0.0-1.5) 09/28/20 05:57 ABG Sodium 137.5 mmol/L (136.0-145.0) 09/28/20 05:57 ABG Potassium 4.1 mmol/L (3.40-4.50) 09/28/20 05:57 ABG Chloride 106.0 mmol/L (98-107) 09/28/20 05:57 ABG Glucose 95 mg/dL (65-95) 09/28/20 05:57 Carboxyhemoglobin 0.7 (0.5-1.5) 09/28/20 05:57 FiO2 50 09/28/20 05:57 Sodium 139 mmol/L (137-145) 09/29/20 05:22 Potassium 3.6 mmol/L (3.6-5.0) 09/29/20 05:22 Chloride 106.1 mmol/L (98-107) 09/29/20 05:22 Carbon Dioxide 23 mmol/L (22-30) 09/29/20 05:22 Anion Gap 14 mmol/L 09/29/20 05:22 BUN 16 mg/dL (7-17) 09/29/20 05:22 Creatinine 0.6 mg/dL (0.6-1.2) 09/29/20 05:22 Estimated GFR > 60 ml/min 09/29/20 05:22 BUN/Creatinine Ratio 27 % 09/29/20 05:22 Glucose 84 mg/dL (65-100) 09/29/20 05:22 POC Glucose 75 mg/dL (70-105) 09/29/20 23:19 Calcium 8.2 mg/dL (8.4-10.2) L 09/29/20 05:22 Total Bilirubin 0.80 mg/dL (0.1-1.2) 09/29/20 05:22 AST 25 units/L (5-40) 09/29/20 05:22 ALT 16 units/L (7-56) 09/29/20 05:22 Alkaline Phosphatase 43 units/L (35-129) 09/29/20 05:22 Total Creatine Kinase 278 units/L (30-135) H 09/29/20 05:22 Total Protein 5.9 g/dL (6.3-8.2) L 09/29/20 05:22 Albumin 3.0 g/dL (3.9-5) L 09/29/20 05:22 Albumin/Globulin Ratio 1.0 % 09/29/20 05:22 TSH 2.960 mlU/mL (0.270-4.200) 09/26/20 14:58 HCG, Qual Negative (Negative) 09/26/20 14:58 Arterial Blood Glucose 95 mg/dL (65-95) 09/28/20 05:57 Arterial Blood Ionized Calcium 4.7 mg/dL (4.6-5.3) 09/28/20 05:57 Urine Color Donya (Yellow) 09/28/20 17:25 Urine Turbidity Turbid (Clear) 09/28/20 17:25 Urine pH 5.0 (5.0-7.0) 09/28/20 17:25 Ur Specific [place] 1.042 (1.003-1.030) H 09/28/20 17:25 Urine Protein 100 mg/dl mg/dL (Negative) 09/28/20 17:25 Urine Glucose (UA) Neg mg/dL (Negative) 09/28/20 17:25 Urine Ketones 80 mg/dL (Negative) 09/28/20 17:25 Urine Blood Neg (Negative) 09/28/20 17:25 Urine Nitrite Neg (Negative) 09/28/20 17:25 Urine Bilirubin Sm (Negative) 09/28/20 17:25 Urine Ictotest Negative (Negative) 09/28/20 17:25 Urine Urobilinogen 2.0 mg/dL (<2.0) 09/28/20 17:25 Ur Leukocyte Esterase Neg (Negative) 09/28/20 17:25 Urine WBC (Auto) 25.0 /HPF (0.0-6.0) H 09/28/20 17:25 Urine RBC (Auto) 10.0 /HPF (0.0-6.0) 09/28/20 17:25 U Epithel Cells (Auto) 4.0 /HPF (0-13.0) 09/28/20 17:25 Urine WBC Clumps 3+ /HPF 09/28/20 17:25 Urine Mucus 3+ /HPF 09/28/20 17:25 Urine Yeast (Budding) 2+ /HPF 09/28/20 17:25 Salicylates < 0.3 mg/dL (2.8-20.0) L 09/26/20 14:58 Urine Opiates Screen Negative 09/27/20 08:15 Urine Methadone Screen Negative 09/27/20 08:15 Acetaminophen 5.0 ug/mL (10.0-30.0) L 09/26/20 14:58 Ur Barbiturates Screen Negative 09/27/20 08:15 Ur Phencyclidine Scrn Negative 09/27/20 08:15 Ur Amphetamines Screen Positive 09/27/20 08:15 U Benzodiazepines Scrn Negative 09/27/20 08:15 Urine Cocaine Screen Negative 09/27/20 08:15 U Marijuana (THC) Screen Positive 09/27/20 08:15 Drugs of Abuse Note Disclamer 09/27/20 08:15 Plasma/Serum Alcohol < 0.01 % (0-0.07) 09/26/20 14:58 Microbiology: Microbiology 09/28/20 17:25 Urine,Clean Catch Urine Culture - Preliminary Enterococcus Species Burt/IV: Voiding Method Indwelling Catheter IV Catheter Type [Right Wrist] Peripheral IV IV Catheter Type [Left Hand] Peripheral IV Active Medications - Current Medications Current Medications: Generic Name Dose Route Start Last Admin Trade Name Freq PRN Reason Stop Dose Admin Heparin Sodium (Porcine) 5,000 unit 09/26/20 22:00 09/30/20 02:07 Heparin 5,000 Unit/1 Ml Vial SUB-Q Not Given Q12HR HEMANTH Hydrophilic Ointment 1 applic 09/26/20 17:15 09/28/20 21:57 Lip Therapy Vaseline TP 1 applic Q2HR PRN Administration Dry Lips Multi-Ingred Cream/Lotion/Oil/Oint 1 applic 09/26/20 17:15 Mineral Oil/Petrolatum, White Ophth Oint 3.5 Gm OU Q4HR PRN Dry Eye(s) Pantoprazole Sodium 40 mg 09/29/20 10:00 09/29/20 10:29 Pantoprazole 40 Mg Tab PO 40 mg QDAC HEMANTH Administration Nutrition/Malnutrition Assess - Dietary Evaluation Nutrition/Malnutrition Findings: Nutrition Notes Start: 09/27/20 1 1:12 Freq: Status: Active Protocol: Document 09/29/20 12:19 AT (Rec: 09/29/20 12:35 AT [email or web address]) Co-Sign 09/29/20 12:19 NHALL Nutrition Notes Initial or Follow up Reassessment Current Diagnosis Respiratory Failure Other Pertinent Diagnosis SIRS, Tachycardia, Methamphetamine Overdose, AMS Current Diet Mechanical Soft Labs/Tests Reviewed Pertinent Medications Protonix NS at 125 mL/hr Height 5 ft 4 in Weight 79.2 kg [place] Body Weight (kg) 54.54 BMI 29.9 Intake Prior to Admission Good Subjective/Other Information Follow up for diet advancement . Per chart/MD, diet will advance after bedside swallow study. Visited pt at bedside, pt reports that she has no difficulties swallowing and does not need mechanical soft. 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 Burn Absent Trauma Absent GI Symptoms None Minimum of two criteria No Reduced Supervisor Riveting Strength Measurably Reduced (severe) #1 Nutrition Diagnosis Inadequate oral intake As Evidenced by Signs and Symptoms Pt's diet advanced to mechanical soft Diagnosis Progress(for reassessment Improved documentation) Is patient on ventilator? No Is Patient Ambulatory and/or Out of Bed Yes REE-([place]-St. Jeor-ambulatory/OOB) [ 1972.100 NUTR.MSJOOB] Kcal/Kg value to use for calculation 22 Approximate Energy Requirements Using 1742 kcal/Kg Additional Notes PRO needs: 54-68g (0.8-1 g/kg AdBW 68kg) Fluid needs: 1 mL/kcal Nutrition Intervention Change Diet Order: Regular Diet Goal #1 Meet at least 75% of estimated energy and protein needs. Goal #2 Diet advancement as tolerated Anticipated Discharge Needs: Regular diet Follow-Up By: 10/04/20 Additional Comments F/U for intakes and diet advancement
--- NOTE | 2020-09-30 18:23 | Discharge Summary ---
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 Patient transported to [facility] via private vehicle for further care and evaluation of the aforementioned symptoms. In ER patient was lethargic and is unable to protect her airway and was hypoxic and has a pulse oximetry of 86% on room air. The patient was promptly intubated and placed on ventilatory support. Poison control were contacted and patient was managed appropriately Patient was admitted to ICU, evaluated and followed by pulmonary critical, gradually weaned and extubated and patient was transferred to medical floor Patient became fully alert and awake, denied any suicidal thoughts or ideation, denies any intentions of intentional drug overdose to hurt herself Patient does not have any psych history. Today patient suddenly decided not to stay and left the hospital AGAINST MEDICAL ADVICE Health care givers counseled the patient the importance of continuing the treatment and risks and consequences of leaving AMA in the middle of the treatment she verbalized understanding however she insisted on leaving AMA. Final diagnosis; --Acute toxic metabolic encephalopathy; Current Visit: Yes Status: Acute due to drug intoxication methamphetamine and marijuana Improved back to baseline -- Acute hypoxemic respiratory failure; present on admission Current Visit: Yes Status: Acute Patient intubated and status post extubation We will check room air O2 sats resting and ambulatory -- Methamphetamine intoxication Current Visit: Yes Status: Acute Plan to address problem: Poison control notified, benzodiazepine therapy, symptoms resolved Resolved --Systemic inflammatory response syndrome Current Visit: Yes Status: Acute Plan to address problem: CBC, repeat CBC in a.m., IV fluid resuscitation therapy. Possible UTI -- Nicotine dependence Current Visit: Yes Status: Acute . Smoking cessation counseling when patient is more stable Nicotine patch as needed Patient left AMA Disposition: [id number] LEFT AGAINST MED ADVICE Time spent for discharge: 35 min Core Measure Documentation - Palliative Care Palliative Care/ Comfort Measures: Not Applicable - Core Measures Any of the following diagnoses?: none Exam - Constitutional Vitals: Temp Pulse Resp BP Pulse Ox 98.2 F 96 H 18 119/75 97 09/30/20 04:08 09/30/20 04:08 09/30/20 04:08 09/30/20 04:08 09/30/20 04:08 General appearance: Present: no acute distress, well-nourished - EENT Eyes: Present: PERRL, EOM intact - Neck Neck: Present: supple, normal ROM - Respiratory Respiratory effort: normal Respiratory: bilateral: diminished, negative: rales, rhonchi, wheezing - Cardiovascular Rhythm: regular Heart Sounds: Present: S1 & S2 - Extremities Extremities: no ischemia, No edema - Abdominal General gastrointestinal: Present: soft, non-tender, non-distended, normal bowel sounds - Integumentary Integumentary: Present: clear, warm - Musculoskeletal Musculoskeletal: strength equal bilaterally, generalized weakness - Psychiatric Psychiatric: appropriate mood/affect, cooperative - Neurologic Neurologic: moves all extremities Plan Additional Instructions: Patient left AMA Follow up with: PRIMARY CARE, [Primary Care Provider] - 3-5 Days Forms: AMA Form
== END 2020-09-30 07:30 | disposition left against medical advice (07) | DRG 917 ==
LOC: ED 13:13 → CC1 17:15 → IMCU 09-27 17:50 → 4A 09-30 00:30
PROVIDERS: ADMIT Internal Medicine; ATTEND Internal Medicine
PROC: 4A033R1 Measurement of Arterial Saturation, Peripheral, Percutaneous Approach (ICD-10-PCS; principal; 2020-09-26)
PROC: 5A1935Z Respiratory Ventilation, Less than 24 Consecutive Hours (ICD-10-PCS; 2020-09-26)
PROC: 0BH17EZ Insertion of Endotracheal Airway into Trachea, Via Natural or Artificial Opening (ICD-10-PCS; 2020-09-26)
DX: T43.621A Poisoning by amphetamines, accidental (unintentional), initial encounter (principal); J96.01 Acute respiratory failure with hypoxia; G92 Toxic encephalopathy; R65.10 Systemic inflammatory response syndrome (SIRS) of non-infectious origin without acute organ dysfunction; F15.229 Other stimulant dependence with intoxication, unspecified; N39.0 Urinary tract infection, site not specified; F17.213 Nicotine dependence, cigarettes, with withdrawal; Y92.89 Other specified places as the place of occurrence of the external cause; Z71.6 Tobacco abuse counseling; Z88.1 Allergy status to other antibiotic agents
CPT/HCPCS: 31500; 36415; 36600; 71045; 80053; 80307; 80320; 81001; 82550; 82805; 82962; 84443; 84703; 85025; 87070; 87086; 87205; 93005; 94002; 94003; 94760; 96374; 96375; 96376; G0378; G0480; J1644; J2060; J7030